=== PATIENT | male | born 1970 | race Caucasian/White ===

== ENCOUNTER 2016-11-13 17:55 | Emergency (ER) | payer OTHER ==
[2016-11-13] MEDS ORDERED: ONDANSETRON 4 MG/2 ML VIAL IVP STA (18:31)
[2016-11-13] MEDS ORDERED: SODIUM CHLORIDE 0.9% 1,000 ML IV STA (18:31)
[2016-11-13] MEDS ORDERED: HYDROmorphone 1 MG/ML 1 ML SYRINGE IVP STA (18:48)
--- NOTE | 2016-11-13 18:51 | ED ---
Nausea/Vomiting/Diarrhea HPI - General Chief complaint: Nausea/Vomiting/Diarrhea Stated complaint: flu symptoms Time Seen by Provider: 11/13/16 18:31 Source: patient, RN notes reviewed Mode of arrival: wheelchair Limitations: no limitations - History of Present Illness Initial comments: 46-year-old male presents emergency Department chief complaint nausea vomiting diarrhea. Patient states symptoms started 3 days ago he states he's only been able keep down small amount of burn is. Patient states he has chronic pain from MS and which he normally takes [place] and states he's been unable take his pain medication. Patient states he has bilateral flank pain. Patient denies any dysuria. Patient states he has some decreased urine output. Patient denies fever, chills. Denies chest pain, shortness breath, headache, dizziness. Patient states he just does not feel well. Patient states his concern is has not been able to keep much down last 3 days. - Related Data Home Medications Medication Instructions Recorded Confirmed HYDROcodone/APAP 10-325MG [[place] 1 tab PO BID PRN 02/19/16 11/13/16 10-325] Aspirin EC [Ecotrin Low Dose] 81 mg PO DAILY 11/13/16 11/13/16 Previous Rx's Medication Instructions Recorded Ondansetron Odt [Zofran Odt] 4 mg PO Q8HR PRN #10 tab 11/13/16 Allergies Allergy/AdvReac Type Severity Reaction Status Date / Time No Known Allergies Allergy Verified 11/13/16 18:39 Review of Systems ROS Statement: Those systems with pertinent positive or pertinent negative responses have been documented in the HPI. ROS Other: All systems not noted in ROS Statement are negative. Past Medical History Past Medical History: Chest Pain / Angina, GERD/Reflux, Neurologic Disorder Additional Past Medical History / Comment(s): ms History of Any Multi-Drug Resistant Organisms: None Reported Past Surgical History: Cholecystectomy, Hernia Repair, Orthopedic Surgery Additional Past Surgical History / Comment(s): had egd, colonoscopy, pain clinic prodedure bi shoulders Past Anesthesia/Blood Transfusion Reactions: No Reported Reaction Past Psychological History: Anxiety Smoking Status: Former smoker Past Alcohol Use History: Occasional Past Drug Use History: Marijuana General Exam Limitations: no limitations General appearance: alert, in no apparent distress Head exam: Present: atraumatic, normocephalic, normal inspection Respiratory exam: Present: normal lung sounds bilaterally. Absent: respiratory distress, wheezes, rales, rhonchi, stridor Cardiovascular Exam: Present: regular rate, normal rhythm, normal heart sounds. Absent: systolic murmur, diastolic murmur, rubs, gallop, clicks GI/Abdominal exam: Present: soft, normal bowel sounds. Absent: distended, tenderness, guarding, rebound, rigid Back exam: Present: full ROM, tenderness, CVA tenderness (R), CVA tenderness (L) . Absent: paraspinal tenderness, vertebral tenderness Neurological exam: Present: alert, oriented X3, CN II-XII intact, reflexes normal. Absent: motor sensory deficit Skin exam: Present: warm, dry, intact, normal color. Absent: rash Course Vital Signs 11/13/16 11/13/16 18:20 19:56 Temperature 97.9 F 98.0 F Pulse Rate 81 70 Respiratory 18 20 Rate Blood Pressure 112/80 123/65 O2 Sat by Pulse 96 100 Oximetry Medical Decision Making - Medical Decision Making 46-year-old male present emergency department for nausea vomiting diarrhea. Patient states does feel improved at this time. Patient has gastritis. Patient be discharged and denies medication. Return parameters were discussed. - Lab Data Result diagrams: 11/13/16 18:52 11/13/16 18:52 Lab Results 11/13/16 11/13/16 11/13/16 Range/Units 18:30 18:52 18:52 WBC 10.0 (3.8-10.6) k/uL RBC 5.71 (4.30-5.90) m/uL Hgb 17.5 (13.0-17.5) gm/dL Hct 51.2 (39.0-53.0) % MCV 89.5 (80.0-100.0) fL MCH 30.6 (25.0-35.0) pg MCHC 34.2 (31.0-37.0) g/dL RDW 13.1 (11.5-15.5) % Plt Count 294 (150-450) k/uL Neutrophils % 63 % Lymphocytes % 26 % Monocytes % 6 % Eosinophils % 2 % Basophils % 1 % Neutrophils # 6.3 (1.3-7.7) k/uL Lymphocytes # 2.6 (1.0-4.8) k/uL Monocytes # 0.6 (0-1.0) k/uL Eosinophils # 0.2 (0-0.7) k/uL Basophils # 0.1 (0-0.2) k/uL Sodium 144 (137-145) mmol/L Potassium 4.7 (3.5-5.1) mmol/L Chloride 105 (98-107) mmol/L Carbon Dioxide 23 (22-30) mmol/L Anion Gap 16 mmol/L BUN 13 (9-20) mg/dL Creatinine 1.04 (0.66-1.25) mg/dL Est GFR (MDRD) Af Amer >60 (>60 ml/min/1.73 sqM) Est GFR (MDRD) Non-Af >60 (>60 ml/min/1.73 sqM) Glucose 99 (74-99) mg/dL Calcium 10.2 (8.4-10.2) mg/dL Total Bilirubin 2.0 H (0.2-1.3) mg/dL AST 35 (17-59) U/L ALT 53 (21-72) U/L Alkaline Phosphatase 79 (38-126) U/L Troponin I (0.000-0.034) ng/mL Total Protein 8.7 H (6.3-8.2) g/dL Albumin 5.1 H (3.5-5.0) g/dL Amylase 62 (30-110) U/L Lipase 67 (23-300) U/L Urine Color Yellow Urine Appearance Clear (Clear) Urine pH 6.0 (5.0-8.0) Ur Specific [place] 1.026 (1.001-1.035) Urine Protein 1+ H (Negative) Urine Glucose (UA) Negative (Negative) Urine Ketones 1+ H (Negative) Urine Blood Negative (Negative) Urine Nitrite Negative (Negative) Urine Bilirubin Negative (Negative) Urine Urobilinogen <2.0 (<2.0) mg/dL Ur Leukocyte Esterase Negative (Negative) Urine RBC <1 (0-5) /hpf Urine WBC <1 (0-5) /hpf Urine Mucus Many H (None) /hpf 11/13/16 Range/Units 18:52 WBC (3.8-10.6) k/uL RBC (4.30-5.90) m/uL Hgb (13.0-17.5) gm/dL Hct (39.0-53.0) % MCV (80.0-100.0) fL MCH (25.0-35.0) pg MCHC (31.0-37.0) g/dL RDW (11.5-15.5) % Plt Count (150-450) k/uL Neutrophils % % Lymphocytes % % Monocytes % % Eosinophils % % Basophils % % Neutrophils # (1.3-7.7) k/uL Lymphocytes # (1.0-4.8) k/uL Monocytes # (0-1.0) k/uL Eosinophils # (0-0.7) k/uL Basophils # (0-0.2) k/uL Sodium (137-145) mmol/L Potassium (3.5-5.1) mmol/L Chloride (98-107) mmol/L Carbon Dioxide (22-30) mmol/L Anion Gap mmol/L BUN (9-20) mg/dL Creatinine (0.66-1.25) mg/dL Est GFR (MDRD) Af Amer (>60 ml/min/1.73 sqM) Est GFR (MDRD) Non-Af (>60 ml/min/1.73 sqM) Glucose (74-99) mg/dL Calcium (8.4-10.2) mg/dL Total Bilirubin (0.2-1.3) mg/dL AST (17-59) U/L ALT (21-72) U/L Alkaline Phosphatase (38-126) U/L Troponin I <0.012 (0.000-0.034) ng/mL Total Protein (6.3-8.2) g/dL Albumin (3.5-5.0) g/dL Amylase (30-110) U/L Lipase (23-300) U/L Urine Color Urine Appearance (Clear) Urine pH (5.0-8.0) Ur Specific [place] (1.001-1.035) Urine Protein (Negative) Urine Glucose (UA) (Negative) Urine Ketones (Negative) Urine Blood (Negative) Urine Nitrite (Negative) Urine Bilirubin (Negative) Urine Urobilinogen (<2.0) mg/dL Ur Leukocyte Esterase (Negative) Urine RBC (0-5) /hpf Urine WBC (0-5) /hpf Urine Mucus (None) /hpf Disposition Clinical Impression: Gastroenteritis Disposition: HOME SELF-CARE Condition: Stable Instructions: Acute Nausea and Vomiting (ED) Additional Instructions: Please return to the Emergency Department if symptoms worsen or any other concerns. Prescriptions: Ondansetron Odt [Zofran Odt] 4 mg PO Q8HR PRN #10 tab PRN Reason: Nausea Time of Disposition: 20:15
[2016-11-13 19:10] LABS: Basophils # (A) 0.1 k/uL (0-0.2); Basophils % (A) 1 %; CH 31.4; CHCM 35.3; Eosinophils # (A) 0.2 k/uL (0-0.7); Eosinophils % (A) 2 %; HCT 51.2 % (39.0-53.0); HDW 2.35; HGB 17.5 gm/dL (13.0-17.5); Luc # (Auto) 0.24; Luc % (Auto) 2; Lymphocytes # (A) 2.6 k/uL (1.0-4.8); Lymphocytes % (A) 26 %; MCH 30.6 pg (25.0-35.0); MCHC 34.2 g/dL (31.0-37.0); MCV 89.5 fL (80.0-100.0); Mean Platelet Volume 7.2; Monocytes # (A) 0.6 k/uL (0-1.0); Monocytes % (A) 6 %; Neutrophils # (A) 6.3 k/uL (1.3-7.7); Neutrophils % (A) 63 %; RBC 5.71 m/uL (4.30-5.90); RDW 13.1 % (11.5-15.5); WBC (Perox) 9.65
[2016-11-13 19:22] LABS: ALT 53 U/L (21-72); AST 35 U/L (17-59); Alkaline Phosphatase 79 U/L (38-126); Amylase 62 U/L (30-110); Anion Gap 16 mmol/L; Blood Urea Nitrogen 13 mg/dL (9-20); Calcium 10.2 mg/dL (8.4-10.2); Carbon Dioxide 23 mmol/L (22-30); Chloride 105 mmol/L (98-107); Glucose 99 mg/dL (74-99); Non-African American GFR(MDRD) >60 (>60 ml/min/1.73 sqM); Potassium 4.7 mmol/L (3.5-5.1); Sodium 144 mmol/L (137-145); Total Protein 8.7 g/dL (6.3-8.2)
[2016-11-13 19:50] LABS: Appearance,Urine Clear (Clear); Bilirubin,Urine Negative (Negative); Glucose,Urine (UA) Negative (Negative); Ketones,Urine 1+ (Negative); Leukocyte Esterase,Urine Negative (Negative); Mucus,Urine Many /hpf; Nitrite,Urine Negative (Negative); Particle Count 7112; Protein,Urine 1+ (Negative); RBC,Urine <1 /hpf (0-5); Specific Gravity,Urine 1.026 (1.001-1.035); UA Billing (MACRO vs. MICRO) MICRO; Urobilinogen,Urine <2.0 mg/dL (<2.0); WBC,Urine <1 /hpf (0-5)
[2016-11-13 19:59] VITALS: RESP 20; TEMP 98
[2016-11-13 20:35] VITALS: BP 104/73; PULSE 69
== END 2016-11-13 20:35 | disposition home or self-care (01) ==
LOC: EC 17:55
DX: K52.9 Noninfective gastroenteritis and colitis, unspecified (principal); K29.70 Gastritis, unspecified, without bleeding; R11.2 Nausea with vomiting, unspecified; K21.9 Gastro-esophageal reflux disease without esophagitis; Z87.891 Personal history of nicotine dependence; Z79.82 Long term (current) use of aspirin; Z87.19 Personal history of other diseases of the digestive system; Z90.49 Acquired absence of other specified parts of digestive tract
CPT/HCPCS: 36415; 93005; 80053; 82150; 83690; 84484; 85025; 81001; 99284; 96374; 96375; 96361; J2405; J1170

== ENCOUNTER → 2016-12-11 | Outpatient (CLI) | payer OTHER ==
--- NOTE | 2016-12-11 08:48 | US ---
EXAMINATION TYPE: US kidneys/renal and bladder DATE OF EXAM: 12/11/2016 8:26 AM COMPARISON: 06/28/2012 CLINICAL HISTORY: R10.84 RUQ PAIN. Left flank pain radiating to the back EXAM MEASUREMENTS: Right Kidney: 11.1 x 4.7 x 5.1 cm Left Kidney: 11.0 x 4.6 x 5.2 cm Right Kidney: Medial anechoic lesions seen at hilum = 1.9 x 1.8 x 1.6 cm Left Kidney: wnl Bladder: distended, wnl Bilateral Jets seen There is no evidence for hydronephrosis at this point in time. No nephrolithiasis is seen. Nonspecif ic hypoechoic lesion near the right renal hilum. The urinary bladder is anechoic. Bilateral ureteral jets are seen. IMPRESSION: Nonspecific hypoechoic lesion near the right renal hilum. Consider CT correlation.
== END ==
LOC: RADUSWWP 08:04
PROVIDERS: ATTEND Family Medicine
DX: R10.9 Unspecified abdominal pain (principal)
CPT/HCPCS: 76770

== ENCOUNTER → 2016-12-24 | Outpatient (CLI) | payer OTHER ==
--- NOTE | 2016-12-24 08:24 | CT ---
EXAMINATION TYPE: CT abdomen w con DATE OF EXAM: 12/24/2016 8:17 AM COMPARISON: 01/22/2013 and ultrasound of 12/11/2016 HISTORY: Abnormal renal ultrasound CT DLP: [address] of the abdomen performed. Contrast:Omni 300/100ml injected. FINDINGS: LUNG BASES-: No visible nodule. No infiltrate. LIVER/GB: Cholecystectomy changes. Fatty hepatic infiltration noted. No space occupying hepatic le kathleen. Biliary tree is of normal caliber. PANCREAS: No inflammation. No distinct mass. SPLEEN: No splenic enlargement. No lesion seen. ADRENALS: No nodule. No thickening. KIDNEYS/BLADDER: No hydronephrosis. No nephrolithiasis. No disctinct renal mass. Findings on ultra sound were likely related to overlying bowel content and artifact. Urinary bladder grossly unremarkab le. BOWEL: Normal appendix. Normal bowel caliber. No inflammation. LYMPH NODES: No greater than 1cm abdominal or pelvic lymph nodes are appreciated. AORTA: No significant abnormality. OSSEOUS STRUCTURES: No significant abnormality is seen. OTHER: No significant additional abnormality is seen. IMPRESSION: 1. No abnormality of the kidneys identified. 2. Fatty liver.
== END | disposition home or self-care (01) ==
LOC: RADCTMAIN 06:31
PROVIDERS: ATTEND Family Medicine
DX: K76.0 Fatty (change of) liver, not elsewhere classified (principal); Z88.6 Allergy status to analgesic agent; Z88.8 Allergy status to other drugs, medicaments and biological substances
CPT/HCPCS: 74160; Q9967

== ENCOUNTER → 2018-05-07 | Outpatient (CLI) | payer MEDICARE ==
--- NOTE | 2018-05-07 19:43 | CT ---
EXAMINATION TYPE: CT sinus wo con DATE OF EXAM: 05/07/2018 COMPARISON: Prior sinus CT September 25, 2015 HISTORY: Headaches x1 month. Chronic sinusitis per order. CT DLP: 658 mGycm. Automated Exposure Control for Dose Reduction was Utilized. TECHNIQUE: CT scan of the sinuses is performed without contrast, axial images are obtained, coronal r eformatted images are also reviewed. FINDINGS: There is redemonstration of stable 8 mm mucous retention cyst or polyp in inferior left max illary sinus. There is mild to moderate lobulated mucosal thickening with small mucous retention cyst s or polyps in the inferior right maxillary sinus redemonstrated. There is mild to moderate mucosal t hickening in the ethmoid sinuses bilaterally most prominent anteriorly slightly improved from prior. There is moderate mucosal thickening in the left frontal sinus redemonstrated slightly improved from prior. Mild mucosal thickening in inferior right frontal sinus is now present. Minimal mucosal thicke chago in the anterior right sphenoid sinus is redemonstrated. No suspicious opacification or air-fluid levels are seen. The ostiomeatal complex is patent on the left on the coronal images similar to prio r. Ostiomeatal complex remains occluded due to antral mucosal thickening on the right. Nasal septum r emains deviated to right of midline. Visualized portion of mastoid air cells show no abnormal opacification. The globes are intact bilate rally. IMPRESSION: Chronic paranasal sinus disease redemonstrated slightly improved from prior. No acute or active sinusitis.
== END | disposition home or self-care (01) ==
LOC: RADCTMAIN 19:00
PROVIDERS: ATTEND Otolaryngology
DX: J32.9 Chronic sinusitis, unspecified (principal)
CPT/HCPCS: 70486

== ENCOUNTER 2018-05-31 15:09 | Emergency (ER) | payer MEDICARE ==
[2018-05-31 15:44] VITALS: BP 114/78; TEMP 97.9
[2018-05-31] MEDS ORDERED: methylPREDNISolone SOD SUCCI 125 MG/2 ML VIAL IV STA (15:59)
--- NOTE | 2018-05-31 16:05 | ED ---
General Adult HPI - General Chief complaint: Shortness of Breath Stated complaint: QUINN Time Seen by Provider: 05/31/18 15:48 Source: patient, RN notes reviewed Mode of arrival: ambulatory Limitations: no limitations - History of Present Illness Initial comments: Patient is a pleasant 47-year-old male presenting to the emergency department with difficulty in breathing. Patient states symptoms have progressed over a couple of days. Patient states it feels slightly like his throat. Patient states it is irritated but only mildly uncomfortable. Patient does have mild cough. Patient has good sinus problems and congestion for months. Patient has been on antibiotics twice now, last time was just a week or so ago. Patient is in the process of scheduling surgery with his ENT doctor. Patient denies any wheezing. No fevers. Patient has been using Flonase without much improvement of symptoms. - Related Data Home Medications Medication Instructions Recorded Confirmed Fluticasone Nasal [place] [Flonase 1 spr EA NOSTRIL BID 05/31/18 05/31/18 Nasal [place]] Ranitidine HCl [Zantac] 75 mg PO BID 05/31/18 05/31/18 Previous Rx's Medication Instructions Recorded predniSONE 20 mg PO BID #10 tab 05/31/18 Allergies Allergy/AdvReac Type Severity Reaction Status Date / Time No Known Allergies Allergy Verified 05/31/18 16:02 Review of Systems ROS Statement: Those systems with pertinent positive or pertinent negative responses have been documented in the HPI. ROS Other: All systems not noted in ROS Statement are negative. Constitutional: Denies: fever Eyes: Denies: eye pain ENT: Reports: congestion Respiratory: Reports: cough, dyspnea Cardiovascular: Denies: chest pain Endocrine: Denies: fatigue Gastrointestinal: Denies: abdominal pain Genitourinary: Denies: dysuria Musculoskeletal: Denies: back pain Skin: Denies: rash Neurological: Reports: headache (Patient does relate this to his chronic sinus problems). Denies: weakness Past Medical History Past Medical History: Chest Pain / Angina, GERD/Reflux, Neurologic Disorder Additional Past Medical History / Comment(s): ms History of Any Multi-Drug Resistant Organisms: None Reported Past Surgical History: Cholecystectomy, Hernia Repair, Orthopedic Surgery Additional Past Surgical History / Comment(s): had egd, colonoscopy, pain clinic prodedure bi shoulders Past Anesthesia/Blood Transfusion Reactions: No Reported Reaction Past Psychological History: Anxiety Smoking Status: Former smoker Past Alcohol Use History: Rare Past Drug Use History: Marijuana General Exam Limitations: no limitations General appearance: alert, in no apparent distress Head exam: Present: atraumatic Eye exam: Present: normal appearance, PERRL ENT exam: Present: other (Tenderness over the frontal, ethmoid,Sinuses. There is prominence of the uvula.) Expanded Mouth exam: Present: tongue normal. Absent: trismus, muffled voice, tongue elevation Throat exam: negative: tonsillar erythema, tonsillomegaly, tonsillar exudate Neck exam: Present: normal inspection Respiratory exam: Present: normal lung sounds bilaterally. Absent: chest wall tenderness Cardiovascular Exam: Present: regular rate, normal rhythm GI/Abdominal exam: Present: soft. Absent: tenderness Extremities exam: Present: normal inspection. Absent: pedal edema, calf tenderness Neurological exam: Present: alert Psychiatric exam: Present: normal affect, normal mood Skin exam: Present: normal color. Absent: cyanosis Course Vital Signs 05/31/18 05/31/18 15:42 16:50 Temperature 97.9 F Pulse Rate 89 Respiratory 22 16 Rate Blood Pressure 114/78 O2 Sat by Pulse 100 Oximetry - Reevaluation(s) Reevaluation #1: 05/31/18 17:24 Patient reevaluated and states he feels significantly improved following steroid. Patient updated on results and need for continued follow-up with ENT. EKG Findings - EKG Comments: EKG Findings:: Normal sinus rhythm 67. MO 150. QRS 90. QT 398. QTC 420. Normal axis. Normal QRS. No acute ST change. Medical Decision Making - Lab Data Result diagrams: 05/31/18 16:14 05/31/18 16:14 Lab Results 05/31/18 05/31/18 05/31/18 Range/Units 16:14 16:14 16:14 WBC 9.3 (3.8-10.6) k/uL RBC 5.52 (4.30-5.90) m/uL Hgb 16.2 (13.0-17.5) gm/dL Hct 48.0 (39.0-53.0) % MCV 86.8 (80.0-100.0) fL MCH 29.3 (25.0-35.0) pg MCHC 33.8 (31.0-37.0) g/dL RDW 13.1 (11.5-15.5) % Plt Count 270 (150-450) k/uL Neutrophils % 55 % Lymphocytes % 32 % Monocytes % 7 % Eosinophils % 4 % Basophils % 1 % Neutrophils # 5.1 (1.3-7.7) k/uL Lymphocytes # 2.9 (1.0-4.8) k/uL Monocytes # 0.6 (0-1.0) k/uL Eosinophils # 0.3 (0-0.7) k/uL Basophils # 0.1 (0-0.2) k/uL PT 9.8 (9.0-12.0) sec INR 1.0 (<1.2) APTT 22.4 (22.0-30.0) sec D-Dimer 0.26 (<0.60) mg/L FEU Sodium 142 (137-145) mmol/L Potassium 4.0 (3.5-5.1) mmol/L Chloride 108 H (98-107) mmol/L Carbon Dioxide 20 L (22-30) mmol/L Anion Gap 14 mmol/L BUN 13 (9-20) mg/dL Creatinine 0.85 (0.66-1.25) mg/dL Est GFR (CKD-EPI)AfAm >90 (>60 ml/min/1.73 sqM) Est GFR (CKD-EPI)NonAf >90 (>60 ml/min/1.73 sqM) Glucose 93 (74-99) mg/dL Calcium 10.0 (8.4-10.2) mg/dL Total Bilirubin 1.0 (0.2-1.3) mg/dL AST 30 (17-59) U/L ALT 29 (21-72) U/L Alkaline Phosphatase 83 (38-126) U/L NT-Pro-B Natriuret Pep pg/mL Total Protein 8.3 H (6.3-8.2) g/dL Albumin 5.0 (3.5-5.0) g/dL 05/31/18 Range/Units 16:14 WBC (3.8-10.6) k/uL RBC (4.30-5.90) m/uL Hgb (13.0-17.5) gm/dL Hct (39.0-53.0) % MCV (80.0-100.0) fL MCH (25.0-35.0) pg MCHC (31.0-37.0) g/dL RDW (11.5-15.5) % Plt Count (150-450) k/uL Neutrophils % % Lymphocytes % % Monocytes % % Eosinophils % % Basophils % % Neutrophils # (1.3-7.7) k/uL Lymphocytes # (1.0-4.8) k/uL Monocytes # (0-1.0) k/uL Eosinophils # (0-0.7) k/uL Basophils # (0-0.2) k/uL PT (9.0-12.0) sec INR (<1.2) APTT (22.0-30.0) sec D-Dimer (<0.60) mg/L FEU Sodium (137-145) mmol/L Potassium (3.5-5.1) mmol/L Chloride (98-107) mmol/L Carbon Dioxide (22-30) mmol/L Anion Gap mmol/L BUN (9-20) mg/dL Creatinine (0.66-1.25) mg/dL Est GFR (CKD-EPI)AfAm (>60 ml/min/1.73 sqM) Est GFR (CKD-EPI)NonAf (>60 ml/min/1.73 sqM) Glucose (74-99) mg/dL Calcium (8.4-10.2) mg/dL Total Bilirubin (0.2-1.3) mg/dL AST (17-59) U/L ALT (21-72) U/L Alkaline Phosphatase (38-126) U/L NT-Pro-B Natriuret Pep 38 pg/mL Total Protein (6.3-8.2) g/dL Albumin (3.5-5.0) g/dL - Radiology Data Radiology results: image reviewed (Chest x-ray and soft tissue neck reveal no acute abnormality.) Disposition Clinical Impression: Uvulitis Disposition: HOME SELF-CARE Condition: Stable Instructions: Uvulitis (ED) Additional Instructions: Please follow-up with primary care physician and ENT in the next couple days for recheck. Return for difficulty breathing, throat swelling, fevers, throat pain, worsening symptoms or other concerns. Prescriptions: predniSONE 20 mg PO BID #10 tab Is patient prescribed a controlled substance at d/c from ED?: No Referrals: Will Mendoza MD [Primary Care Provider] - 1-2 days Prabhjot Garcia MD [Family Provider] - 1-2 days Time of Disposition: 17:25
[2018-05-31 16:23] LABS: Basophils # (A) 0.1 k/uL (0-0.2); Basophils % (A) 1 %; Eosinophils # (A) 0.3 k/uL (0-0.7); Eosinophils % (A) 4 %; HGB 16.2 gm/dL (13.0-17.5); Lymphocytes # (A) 2.9 k/uL (1.0-4.8); Lymphocytes % (A) 32 %; MCH 29.3 pg (25.0-35.0); MCHC 33.8 g/dL (31.0-37.0); MCV 86.8 fL (80.0-100.0); Mean Platelet Volume 6.8; Monocytes # (A) 0.6 k/uL (0-1.0); Monocytes % (A) 7 %; Neutrophils # (A) 5.1 k/uL (1.3-7.7); Neutrophils % (A) 55 %; Platelet Count 270 k/uL (150-450); RBC 5.52 m/uL (4.30-5.90); RDW 13.1 % (11.5-15.5); WBC 9.3 k/uL (3.8-10.6)
[2018-05-31 16:34] LABS: ALT 29 U/L (21-72); AST 30 U/L (17-59); Alkaline Phosphatase 83 U/L (38-126); Anion Gap 14 mmol/L; Blood Urea Nitrogen 13 mg/dL (9-20); Carbon Dioxide 20 mmol/L (22-30); Chloride 108 mmol/L (98-107); Glucose 93 mg/dL (74-99); Sodium 142 mmol/L (137-145); Total Protein 8.3 g/dL (6.3-8.2)
[2018-05-31 16:40] LABS: D-Dimer 0.26 mg/L FEU (<0.60); Prothrombin Time 9.8 sec (9.0-12.0)
[2018-05-31 16:41] LABS: Partial Thromboplastin Time 22.4 sec (22.0-30.0)
--- NOTE | 2018-05-31 16:50 | XR ---
EXAMINATION TYPE: XR chest 2V DATE OF EXAM: 05/31/2018 COMPARISON: Prior chest 01/19/2014 HISTORY: Difficulty breathing, shortness of breath TECHNIQUE: Frontal and lateral views of the chest are obtained. FINDINGS: There is no focal air space opacity, pleural effusion, or pneumothorax seen. The cardiac silhouette size is within normal limits. The osseous structures are intact. IMPRESSION: No acute cardiopulmonary process.
[2018-05-31 16:52] VITALS: RESP 16
--- NOTE | 2018-05-31 16:52 | XR ---
Soft tissue neck HISTORY: Dyspnea and shortness of breath 2 views of the neck, comparison prior exam 11/28/2013 There is multilevel spondylosis. Loss of disc height present at C3-4, there is multilevel spondylosis . Suspect carotid artery calcification. There is no radiopaque foreign body. Airway is patent. Epiglo ttis shows a normal appearance in profile. IMPRESSION: Mild degenerative disc disease. Additional findings above.
[2018-05-31 17:36] VITALS: PULSE 77
== END 2018-05-31 17:30 | disposition home or self-care (01) ==
LOC: EC 15:09
DX: K12.2 Cellulitis and abscess of mouth (principal); R06.02 Shortness of breath; R05 Cough; J34.89 Other specified disorders of nose and nasal sinuses; K21.9 Gastro-esophageal reflux disease without esophagitis; Z87.891 Personal history of nicotine dependence; Z79.899 Other long term (current) drug therapy
CPT/HCPCS: 36415; 93005; 85379; 83880; 80053; 85025; 85610; 85730; 70360; 71046; 99285; 96374; J2930

== ENCOUNTER 2018-06-07 13:40 | Inpatient (IN) | payer MEDICARE, OTHER ==
[2018-06-07] MEDS ORDERED: ONDANSETRON 4 MG/2 ML VIAL IVP STA (14:27)
[2018-06-07] MEDS ORDERED: PANTOPRAZOLE 40 MG/10 ML VIAL IVP STA (14:27)
--- NOTE | 2018-06-07 14:31 | ED ---
General Adult HPI - General Chief complaint: GI Bleed Stated complaint: Rectal bleeding Time Seen by Provider: 06/07/18 14:14 Source: patient, RN notes reviewed Mode of arrival: ambulatory Limitations: no limitations - History of Present Illness Initial comments: Patient is a pleasant 47-year-old male presenting to the emergency department with concerns for rectal bleeding. Onset was today. Patient has had 2 episodes. Patient urgently had to go to the bathroom and had large amount of blood mixed with stool. No history of similar symptoms previously. Patient has been on prednisone twice recently for uvulitis. Patient states this has improved however not resolved. Patient has seen primary care physician and ENT for this as well as emergency department. Patient complains of some mild nausea. Patient also has some mild diffuse abdominal discomfort. Patient has no concerns for hemorrhoids or history of hemorrhoids. - Related Data Home Medications Medication Instructions Recorded Confirmed Ranitidine HCl [Zantac] 150 mg PO BID 06/07/18 06/07/18 Allergies Allergy/AdvReac Type Severity Reaction Status Date / Time No Known Allergies Allergy Verified 06/07/18 14:27 Review of Systems ROS Statement: Those systems with pertinent positive or pertinent negative responses have been documented in the HPI. ROS Other: All systems not noted in ROS Statement are negative. Constitutional: Denies: fever Eyes: Denies: eye pain ENT: Denies: ear pain Respiratory: Denies: cough Cardiovascular: Denies: chest pain Endocrine: Reports: fatigue Gastrointestinal: Reports: abdominal pain, hematochezia Genitourinary: Denies: dysuria Musculoskeletal: Denies: back pain Neurological: Denies: weakness Past Medical History Past Medical History: Chest Pain / Angina, GERD/Reflux, Neurologic Disorder Additional Past Medical History / Comment(s): ms History of Any Multi-Drug Resistant Organisms: None Reported Past Surgical History: Cholecystectomy, Hernia Repair, Orthopedic Surgery Additional Past Surgical History / Comment(s): had egd, colonoscopy, pain clinic prodedure bi shoulders Past Anesthesia/Blood Transfusion Reactions: No Reported Reaction Past Psychological History: Anxiety Smoking Status: Former smoker Past Alcohol Use History: Rare Past Drug Use History: Marijuana General Exam Limitations: no limitations General appearance: alert, in no apparent distress Head exam: Present: atraumatic Eye exam: Present: normal appearance, PERRL ENT exam: Present: other (Uvula remains mildly prominent) Neck exam: Present: normal inspection Respiratory exam: Present: normal lung sounds bilaterally Cardiovascular Exam: Present: regular rate, normal rhythm GI/Abdominal exam: Present: soft, tenderness (Mild diffuse tenderness), normal bowel sounds. Absent: distended, guarding, rebound, rigid Rectal exam: Present: normal inspection. Absent: black stool, bloody stool, hemorrhoids Extremities exam: Present: normal inspection. Absent: pedal edema, calf tenderness Back exam: Present: normal inspection Neurological exam: Present: alert Psychiatric exam: Present: normal affect, normal mood Skin exam: Present: normal color Course Vital Signs 06/07/18 06/07/18 13:58 15:58 Temperature 98.5 F 97.7 F Pulse Rate 83 72 Respiratory 18 18 Rate Blood Pressure 123/78 135/73 O2 Sat by Pulse 97 98 Oximetry Medical Decision Making - Medical Decision Making Patient reevaluated and updated. Case was discussed with Dr. Mendoza, who will admit his patient. - Lab Data Result diagrams: 06/07/18 14:25 06/07/18 14:25 Lab Results 06/07/18 06/07/18 06/07/18 Range/Units 14:25 14:25 14:25 WBC 11.4 H (3.8-10.6) k/uL RBC 5.38 (4.30-5.90) m/uL Hgb 15.6 (13.0-17.5) gm/dL Hct 45.8 (39.0-53.0) % MCV 85.2 (80.0-100.0) fL MCH 29.0 (25.0-35.0) pg MCHC 34.0 (31.0-37.0) g/dL RDW 13.4 (11.5-15.5) % Plt Count 252 (150-450) k/uL Neutrophils % 59 % Lymphocytes % 29 % Monocytes % 7 % Eosinophils % 3 % Basophils % 1 % Neutrophils # 6.7 (1.3-7.7) k/uL Lymphocytes # 3.3 (1.0-4.8) k/uL Monocytes # 0.7 (0-1.0) k/uL Eosinophils # 0.4 (0-0.7) k/uL Basophils # 0.1 (0-0.2) k/uL PT (9.0-12.0) sec INR (<1.2) APTT (22.0-30.0) sec Sodium 140 (137-145) mmol/L Potassium 4.3 (3.5-5.1) mmol/L Chloride 106 (98-107) mmol/L Carbon Dioxide 22 (22-30) mmol/L Anion Gap 12 mmol/L BUN 14 (9-20) mg/dL Creatinine 0.83 (0.66-1.25) mg/dL Est GFR (CKD-EPI)AfAm >90 (>60 ml/min/1.73 sqM) Est GFR (CKD-EPI)NonAf >90 (>60 ml/min/1.73 sqM) Glucose 86 (74-99) mg/dL Calcium 9.2 (8.4-10.2) mg/dL Total Bilirubin 0.9 (0.2-1.3) mg/dL AST 20 (17-59) U/L ALT 28 (21-72) U/L Alkaline Phosphatase 65 (38-126) U/L Total Creatine Kinase 35 L (55-170) U/L CK-MB (CK-2) 0.5 (0.0-2.4) ng/mL CK-MB (CK-2) Rel Index 1.4 Troponin I <0.012 (0.000-0.034) ng/mL Total Protein 7.0 (6.3-8.2) g/dL Albumin 4.3 (3.5-5.0) g/dL Lipase 61 (23-300) U/L Stool Occult Blood (Negative) 06/07/18 06/07/18 Range/Units 14:25 14:25 WBC (3.8-10.6) k/uL RBC (4.30-5.90) m/uL Hgb (13.0-17.5) gm/dL Hct (39.0-53.0) % MCV (80.0-100.0) fL MCH (25.0-35.0) pg MCHC (31.0-37.0) g/dL RDW (11.5-15.5) % Plt Count (150-450) k/uL Neutrophils % % Lymphocytes % % Monocytes % % Eosinophils % % Basophils % % Neutrophils # (1.3-7.7) k/uL Lymphocytes # (1.0-4.8) k/uL Monocytes # (0-1.0) k/uL Eosinophils # (0-0.7) k/uL Basophils # (0-0.2) k/uL PT 9.9 (9.0-12.0) sec INR 1.0 (<1.2) APTT 21.5 L (22.0-30.0) sec Sodium (137-145) mmol/L Potassium (3.5-5.1) mmol/L Chloride (98-107) mmol/L Carbon Dioxide (22-30) mmol/L Anion Gap mmol/L BUN (9-20) mg/dL Creatinine (0.66-1.25) mg/dL Est GFR (CKD-EPI)AfAm (>60 ml/min/1.73 sqM) Est GFR (CKD-EPI)NonAf (>60 ml/min/1.73 sqM) Glucose (74-99) mg/dL Calcium (8.4-10.2) mg/dL Total Bilirubin (0.2-1.3) mg/dL AST (17-59) U/L ALT (21-72) U/L Alkaline Phosphatase (38-126) U/L Total Creatine Kinase (55-170) U/L CK-MB (CK-2) (0.0-2.4) ng/mL CK-MB (CK-2) Rel Index Troponin I (0.000-0.034) ng/mL Total Protein (6.3-8.2) g/dL Albumin (3.5-5.0) g/dL Lipase (23-300) U/L Stool Occult Blood Positive (Negative) - Radiology Data Radiology results: report reviewed (Computed tomography scan of the abdomen pelvis concerning for mild colitis of the sigmoid and possibly transverse colon) Disposition Clinical Impression: Lower gastrointestinal hemorrhage Disposition: ADMITTED IP TO THIS [facility] Referrals: Will Mendoza MD [Primary Care Provider] - 1-2 days Decision Time: 16:34
[2018-06-07] MEDS: SODIUM CHLORIDE 0.9% 1,000 ML IV STA ×2 (14:35→20:11)
[2018-06-07 14:41] LABS: Basophils # (A) 0.1 k/uL (0-0.2); Basophils % (A) 1 %; Eosinophils # (A) 0.4 k/uL (0-0.7); Eosinophils % (A) 3 %; HCT 45.8 % (39.0-53.0); HGB 15.6 gm/dL (13.0-17.5); Lymphocytes # (A) 3.3 k/uL (1.0-4.8); Lymphocytes % (A) 29 %; MCV 85.2 fL (80.0-100.0); Mean Platelet Volume 6.6; Monocytes # (A) 0.7 k/uL (0-1.0); Monocytes % (A) 7 %; Neutrophils # (A) 6.7 k/uL (1.3-7.7); Neutrophils % (A) 59 %; Platelet Count 252 k/uL (150-450); RBC 5.38 m/uL (4.30-5.90); RDW 13.4 % (11.5-15.5); WBC 11.4 k/uL (3.8-10.6)
[2018-06-07 14:47] LABS: ALT 28 U/L (21-72); AST 20 U/L (17-59); Albumin 4.3 g/dL (3.5-5.0); Alkaline Phosphatase 65 U/L (38-126); Anion Gap 12 mmol/L; Blood Urea Nitrogen 14 mg/dL (9-20); Calcium 9.2 mg/dL (8.4-10.2); Carbon Dioxide 22 mmol/L (22-30); Chloride 106 mmol/L (98-107); Glucose 86 mg/dL (74-99); Lipase 61 U/L (23-300); Potassium 4.3 mmol/L (3.5-5.1); Sodium 140 mmol/L (137-145); Total Bilirubin 0.9 mg/dL (0.2-1.3)
[2018-06-07 14:57] LABS: Prothrombin Time 9.9 sec (9.0-12.0)
[2018-06-07 15:02] LABS: Partial Thromboplastin Time 21.5 sec (22.0-30.0)
[2018-06-07 15:06] LABS: Creatine Kinase 35 U/L (55-170)
[2018-06-07 15:17] LABS: Creatine Kinase MB 0.5 ng/mL (0.0-2.4); Troponin I <0.012 ng/mL (0.000-0.034)
--- NOTE | 2018-06-07 15:38 | CT ---
EXAMINATION TYPE: CT abdomen pelvis w con DATE OF EXAM: 06/07/2018 COMPARISON: 12/24/2016 INDICATION: Generalized abdominal pain with rectal bleeding. DLP: 1331 mGycm, Automated exposure control for dose reduction was used. CONTRAST: 100 mL of Isovue M300. Study performed without Oral Contrast TECHNIQUE: Axial images were obtained from above the diaphragm to the pubic rami in the axial plane a t 5 mm thick sections. Reconstructed images are reviewed on the computer in the coronal plane. FINDINGS: Limited CT sections are obtained the lung bases. The lung bases are clear. CT ABDOMEN: Liver: Normal Spleen: Normal Pancreas: Normal Adrenal glands: The adrenal glands are normal. Gallbladder: Surgically absent Kidneys: No masses are evident. No hydronephrosis is present. No cysts are present. Delayed images were obtained through the kidneys, which remain unremarkable. Aorta: Vascular calcification is within the aorta. Inferior vena cava: Normal. CT PELVIS: Loops of bowel within the abdomen and pelvis are normal. There are loops of bowel which are incom pletely distended or lack oral contrast limiting their evaluation. There may be a few diverticular ch anges within the sigmoid colon. There is a suggestion of some mild wall thickening within the sigmoid colon. Correlate for colitis. Suspicious inflammatory changes suggest acute diverticulitis is not ev ident. Fecal debris is within the colon. Mild wall thickening of the proximal to mid transverse colon is not excluded. Appendix: Normal as visualized. Urinary bladder: Normal. Genitourinary structures: Prostate is slightly prominent. Osseous structures: No suspicious lytic or sclerotic lesions. IMPRESSIONS: 1. Findings suggestive for mild colitis within the sigmoid colon and possibly proximal transverse co jasvir. 2. No acute diverticulitis. Mild diverticulosis of the sigmoid colon may be present.
[2018-06-07] MEDS ORDERED: HYDROmorphone 1 MG/ML 1 ML SYRINGE IVP PRN (16:34)
[2018-06-07] MEDS ORDERED: NALOXONE 0.4 MG/ML 1 ML VIAL IV PRN (16:34)
[2018-06-07] MEDS: PANTOPRAZOLE 40 MG/10 ML VIAL IV SCH (16:45)
[2018-06-07] MEDS: SODIUM CHLORIDE 0.9% 1,000 ML IV SCH (20:12)
[2018-06-07] MEDS: HYDROmorphone 1 MG/ML 1 ML SYRINGE IVP PRN ×2 (20:17→23:14)
[2018-06-08] MEDS: HYDROmorphone 1 MG/ML 1 ML SYRINGE IVP PRN ×4 (05:13→18:31)
[2018-06-08] MEDS: ONDANSETRON 4 MG/2 ML VIAL IVP PRN ×2 (05:13→14:13)
[2018-06-08] MEDS: PANTOPRAZOLE 40 MG/10 ML VIAL IV SCH (09:08)
[2018-06-08] MEDS: SODIUM CHLORIDE 0.9% 1,000 ML IV SCH ×2 (09:09→21:03)
[2018-06-08 09:37] LABS: Basophils # (A) 0.1 k/uL (0-0.2); Basophils % (A) 1 %; Eosinophils # (A) 0.2 k/uL (0-0.7); Eosinophils % (A) 3 %; HCT 45.9 % (39.0-53.0); HGB 15.2 gm/dL (13.0-17.5); Lymphocytes # (A) 2.1 k/uL (1.0-4.8); Lymphocytes % (A) 23 %; MCH 29.2 pg (25.0-35.0); MCHC 33.1 g/dL (31.0-37.0); MCV 88.1 fL (80.0-100.0); Monocytes # (A) 0.6 k/uL (0-1.0); Monocytes % (A) 6 %; Neutrophils % (A) 67 %; Platelet Count 250 k/uL (150-450); RBC 5.21 m/uL (4.30-5.90); RDW 13.2 % (11.5-15.5)
--- NOTE | 2018-06-08 12:22 | P.HPIM ---
History of Present Illness 47-year-old male presented to family physician office with complaints of rectal bleeding. Patient stated he had abdominal pain and distention for well. Patient was sent to the emergency room for evaluation admitted patient has history of prednisone use for upper respiratory infection Review of Systems Constitutional: Reports weakness Gastrointestinal: Reports abdominal pain, Reports hematochezia Past Medical History Past Medical History: Chest Pain / Angina, CVA/TIA, GERD/Reflux, Neurologic Disorder Additional Past Medical History / Comment(s): superficial blood clot in right arm History of Any Multi-Drug Resistant Organisms: None Reported Past Surgical History: Cholecystectomy, Hernia Repair, Orthopedic Surgery Additional Past Surgical History / Comment(s): had egd, colonoscopy, pain clinic prodedure for bilat shoulders Past Anesthesia/Blood Transfusion Reactions: No Reported Reaction Past Psychological History: Anxiety Smoking Status: Former smoker Past Alcohol Use History: Rare Past Drug Use History: Marijuana Medications and Allergies Home Medications Medication Instructions Recorded Confirmed Type Ranitidine HCl [Zantac] 150 mg PO BID 06/07/18 06/07/18 History Allergies Allergy/AdvReac Type Severity Reaction Status Date / Time No Known Allergies Allergy Verified 06/07/18 14:27 Physical Exam Vitals: Vital Signs Temp Pulse Pulse Resp BP BP Pulse Ox 06/08/18 06:52 98.4 F 06/08/18 06:15 99.0 F 75 18 106/73 97 06/07/18 23:00 98.5 F 69 18 109/71 96 06/07/18 18:36 98.0 F 69 16 141/83 98 06/07/18 15:58 97.7 F 72 18 135/73 98 06/07/18 13:58 98.5 F 83 18 123/78 97 Intake and Output 06/07/18 06/08/18 06/08/18 22:59 06:59 14:59 Other: Voiding Method Toilet # Voids 1 1 # Bowel Movements 1 - Constitutional General appearance: mild distress - EENT Eyes: PERRLA Ears: bilateral: normal - Respiratory Respiratory: bilateral: CTA - Cardiovascular Rhythm: regular - Gastrointestinal General gastrointestinal: soft Localized gastrointestinal: tender: diffuse - Integumentary Integumentary: normal - Neurologic Neurologic: CNII-XII intact - Musculoskeletal Musculoskeletal: gait normal - Psychiatric Psychiatric: A&O x's 3, appropriate affect, intact judgment & insight Results CBC & Chem 7: 10/09/18 08:59 06/07/18 14:25 Labs: Abnormal Lab Results - Last 24 Hours (Table) 06/07/18 06/07/18 06/07/18 Range/Units 14:25 14:25 14:25 WBC 11.4 H (3.8-10.6) k/uL APTT 21.5 L (22.0-30.0) sec Total Creatine Kinase 35 L (55-170) U/L CT scan - abdomen: report reviewed Thrombosis Risk Factor Assmnt - Choose All That Apply Each Factor Represents 1 point: Age 41-60 years Thrombosis Risk Factor Assessment Total Risk Factor Score: 1 Thrombosis Risk Factor Assessment Level: Low Risk Assessment and Plan Plan: Assessment Lower gastrointestinal hemorrhage Colitis History of GERD CVA/TIA Plan consultation with Dr. Bell regarding colitis Plan for colonoscopy tomorrow
--- NOTE | 2018-06-08 12:37 | P.CONS ---
History of Present Illness - Reason for Consult Consult date: 06/08/18 Rectal bleeding Requesting physician: Will Mendoza - Chief Complaint Rectal bleeding abdominal pain - History of Present Illness 47-year-old male patient Dr. Will Mendoza recently treated in the outpatient setting for sinus infection with antibiotics and steroids presents with acute rectal bleeding abdominal discomfort. Patient has no history of GI bleed or peptic ulcer disease. Yesterday patient passed a few blood tinged bowel movements Denies fever chills hematemesis or melena. This morning he passed a nonbloody bowel movement described green in color. Admission hemoglobin 15.6 presently 15.2. White count 11.4 presently 9.0. INR 1.0. BUN 14. Creatinine 0.8. Lipase 61. LFTs within normal limits. FOBT positive. CT abdomen and pelvis findings suggestive mild colitis within the sigmoid colon and possible proximal transverse colon. Mild diverticular in the sigmoid may be present with no evidence of acute diverticulitis. Abdominal pain is mostly across the midabdomen midepigastric region. Review of Systems Constitutional: Denies fever, chills, sweats, weight gain, or loss. HEENT: Negative for migraines, blurred vision or loss, earaches, drainage, tinnitus, oral mucosal lesions, dysphagia, or odynophagia. Cardiac: Negative for chest pain, arrhythmias, or palpitation. Respiratory: Negative for shortness of breath, hemoptysis, cough, or sputum production. Gastrointestinal: See HPI for pertinent findings. Genitourinary: Negative for hematuria, urgency, frequency, polyuria, dysuria, or penile discharge. Musculoskeletal: Negative for muscle aches, swelling, arthritis, and arthralgias. Neurologic: Negative for stroke or TIA. Endocrine: Negative for thyroid problems. Skin: Negative for rash or itching. Psychiatric: Negative history for depression and anxiety Past Medical History Past Medical History: Chest Pain / Angina, CVA/TIA, GERD/Reflux, Neurologic Disorder Additional Past Medical History / Comment(s): superficial blood clot in right arm History of Any Multi-Drug Resistant Organisms: None Reported Past Surgical History: Cholecystectomy, Hernia Repair, Orthopedic Surgery Additional Past Surgical History / Comment(s): had egd, colonoscopy, pain clinic prodedure for bilat shoulders Past Anesthesia/Blood Transfusion Reactions: No Reported Reaction Past Psychological History: Anxiety Smoking Status: Former smoker Past Alcohol Use History: Rare Past Drug Use History: Marijuana Medications and Allergies Home Medications Medication Instructions Recorded Confirmed Type Ranitidine HCl [Zantac] 150 mg PO BID 06/07/18 06/07/18 History Allergies Allergy/AdvReac Type Severity Reaction Status Date / Time No Known Allergies Allergy Verified 06/07/18 14:27 Physical Exam Vitals: Vital Signs Temp Pulse Pulse Resp BP BP Pulse Ox 06/08/18 06:52 98.4 F 06/08/18 06:15 99.0 F 75 18 106/73 97 06/07/18 23:00 98.5 F 69 18 109/71 96 06/07/18 18:36 98.0 F 69 16 141/83 98 06/07/18 15:58 97.7 F 72 18 135/73 98 06/07/18 13:58 98.5 F 83 18 123/78 97 Intake and Output 06/07/18 06/08/18 06/08/18 22:59 06:59 14:59 Other: Voiding Method Toilet # Voids 1 1 # Bowel Movements 1 General appearance: The patient is alert, oriented, in no acute distress. HET: Head is normocephalic and atraumatic. Pupils are equal and reactive. Oropharynx is clear without lesions. Neck: Supple without lymphadenopathy. Trachea midline. Heart: S1 S2. Regular rate and rhythm. Lungs: No crackles or wheezes are heard. Abdomen: Soft, diffuse mild tenderness across the midabdomen midepigastrium, nondistended with bowel sounds. No peritoneal signs. No palpable organomegaly or masses. Extremities: Normal skin color and turgor. No cyanosis, rash, ulceration, clubbing, or edema. Radial and pedal pulses are 2/4 bilaterally. Neurological: No focal deficits. Strength and sensation are grossly intact. Results CBC & Chem 7: 06/08/18 08:59 06/07/18 14:25 Labs: Abnormal Lab Results - Last 24 Hours (Table) 06/07/18 06/07/18 06/07/18 Range/Units 14:25 14:25 14:25 WBC 11.4 H (3.8-10.6) k/uL APTT 21.5 L (22.0-30.0) sec Total Creatine Kinase 35 L (55-170) U/L CT scan - abdomen: report reviewed (Dr. Steele) Assessment and Plan (1) Acute abdominal pain Narrative/Plan: 47-year-old male presents with acute epigastric abdominal pain with rectal bleeding 1 day recently treated in the outpatient setting with antibiotics and steroids for suspected sinus infection. CT abdomen and pelvis reported findings suggestive of mild colitis within the sigmoid colon and possible proximal transverse colon without evidence of diverticulitis. Possible self limiting infectious colitis possible inflammatory colitis. Current Visit: Yes Status: Acute Code(s): R10.9 - UNSPECIFIED ABDOMINAL PAIN SNOMED Code(s): 704911739 (2) Rectal bleeding Current Visit: Yes Status: Acute Code(s): K62.5 - HEMORRHAGE OF ANUS AND RECTUM SNOMED Code(s): 68115336 Plan: 1. Clear liquids. 2. Stool studies including C. diff testing. 3. We'll proceed with EGD colonoscopy tomorrow. GI prophylaxis. CBC monitoring. The accountant tax has discussed the risks, benefits and alternative therapies for the above-mentioned procedure and for both sedation/analgesia as well as necessary blood product administration, if indicated, as they pertain to this patient. The patient has indicated understanding and acceptance of the risks and procedures discussed. Thank you for this kind referral and the opportunity to participate in the care of your patient. This consultation was discussed with Dr. Steele. The impression and plan of care have been directed as dictated.
[2018-06-08] MEDS ORDERED: BISACODYL 5 MG TABLET.DR PO STA (12:40)
[2018-06-08] MEDS ORDERED: PEG 3350-NA SULF,BICARB,CL/KCL 4,000 ML BOTTLE PO ONE (15:00)
[2018-06-09] MEDS: HYDROmorphone 1 MG/ML 1 ML SYRINGE IVP PRN ×5 (06:46→21:46)
[2018-06-09] MEDS: PANTOPRAZOLE 40 MG/10 ML VIAL IV SCH (08:30)
[2018-06-09] MEDS: ONDANSETRON 4 MG/2 ML VIAL IVP PRN ×2 (09:46→18:27)
[2018-06-09] MEDS ORDERED: IV FLUID CONTINUATION 1,000 ML IV ONE (11:57)
[2018-06-09] MEDS ORDERED: KETAMINE 10 MG/ML 20 ML VIAL ONE (12:00)
[2018-06-09] MEDS ORDERED: PROPOFOL 10 MG/ML 20 ML VIAL IV ONE (12:00)
[2018-06-09] MEDS ORDERED: LIDOCAINE 1% INJ 10MG/ML (20 ML MDV) ONE (12:00)
[2018-06-09] MEDS ORDERED: MIDAZOLAM 2 MG/2 ML VIAL ONE (12:00)
--- NOTE | 2018-06-09 12:15 | P.PN ---
Subjective Continues with left lower quadrant pain. Patient scheduled for EGD and colonoscopy Objective - Vital Signs Vital signs: Vital Signs Temp 98.3 F 06/09/18 08:00 Pulse 78 06/09/18 08:00 Resp 18 06/09/18 08:00 BP 136/69 06/09/18 08:00 Pulse Ox 97 06/09/18 06:10 Intake & Output 06/08/18 06/09/18 06/09/18 18:59 06:59 18:59 Intake Total 600 Balance 600 Intake: Intake, IV Titration 600 Amount Sodium Chloride 0.9% 1, 600 000 ml @ 75 mls/hr IV . [id number] MADELINE Rx#:[id number] Other: Voiding Method Toilet # Voids 4 2 # Bowel Movements 1 2 - Constitutional General appearance: Present: mild distress - EENT Eyes: Present: PERRLA Ears: bilateral: normal - Neck Neck: Present: normal ROM - Respiratory Respiratory: bilateral: CTA - Cardiovascular Rhythm: regular - Gastrointestinal General gastrointestinal: Present: soft Localized gastrointestinal: tender: LLQ - Integumentary Integumentary: Present: normal - Neurologic Neurologic: Present: CNII-XII intact - Musculoskeletal Musculoskeletal: Present: gait normal - Psychiatric Psychiatric: Present: A&O x's 3, appropriate affect, intact judgment & insight - Labs CBC & Chem 7: 06/08/18 08:59 06/07/18 14:25 Labs: Microbiology - Last 24 Hours (Table) 06/08/18 18:29 Stool Culture - Preliminary Stool Assessment and Plan Plan: Assessment Lower gastrointestinal hemorrhage Left lower quadrant abdominal pain Colitis GERD History of CVA/TIA Plan EGD and colonoscopy scheduled
--- NOTE | 2018-06-09 12:20 | P.PCN ---
Date of Procedure: 06/09/18 Procedure(s) Performed: Brief history: Patient is a pleasant 47-year-old white male scheduled for an elective upper endoscopy as well as colonoscopy as a part of evaluation of acute GI bleed. He had a few episodes of bright red blood per rectum 2 days ago. Hemoglobin remained stable at 15 g/dL. Procedure performed: Esophagogastroduodenoscopy Colonoscopy Preoperative diagnosis: Abdominal pain Acute GI bleed Anesthesia: [facility] [place] Procedure: After informed consent was obtained from the patient was brought into the endoscopy unit and IV sedation was administered by anesthesia under continuous monitoring. Initially upper endoscopy was done. The Olympus GF 160 video endoscope was inserted inserted into the mouth and esophagus intubated without any difficulty and was gradually advanced into the stomach and duodenum and carefully examined. The bulb and second part of the duodenum appeared normal. The scope was then withdrawn into the stomach adequately insufflated with air and upon careful examination the antrum and body, cardia and fundus appeared normal. The scope was then withdrawn into the esophagus. The GE junction was located at 40 cm to the incisors. It appeared regular with no erythema erosions or ulcerations. Rest of the esophagus appeared normal. Patient tolerated the procedure well. At this time the patient continued to remain sedation. Initial digital rectal examination was normal. Olympus CF 160 video colonoscope was then inserted into the rectum and gradually advanced to the cecum without any difficulty. Careful examination was performed as the scope was gradually being withdrawn. The prep was excellent. The cecum, ascending colon, transverse colon, descending colon, sigmoid colon and rectum appeared normal. Retroflexion was performed in the rectum and small internal hemorrhoids were noted. Patient tolerated the procedure well. Impression: 1. Upper endoscopy revealed mild antral gastritis but no evidence of esophagitis or peptic ulcer disease 2. Colonoscopy revealed small internal hemorrhoids. No evidence of colitis or colorectal neoplasia Recommendations: Findings of this examination were discussed with the patient. He was advised to be a high-fiber diet and fiber supplements a regular basis, and avoid straining and constipation
[2018-06-09] MEDS: LACTATED RINGERS 1,000 ML IV SCH ×2 (14:43→21:50)
[2018-06-09] MEDS: SODIUM CHLORIDE 0.9% 1,000 ML IV SCH ×2 (17:03→21:50)
[2018-06-10] MEDS: HYDROmorphone 1 MG/ML 1 ML SYRINGE IVP PRN ×2 (01:37→06:29)
[2018-06-10 07:39] VITALS: BP 118/74; PULSE 75; RESP 16; TEMP 98.8
[2018-06-10] MEDS: PANTOPRAZOLE 40 MG/10 ML VIAL IV SCH (07:50)
--- NOTE | 2018-06-10 09:50 | P.PN ---
Subjective Progress Note Date: 06/10/18 Principal diagnosis: Rectal bleeding Status post EGD colonoscopy evidence of internal hemorrhoids. Feels well. No bleeding. Objective - Vital Signs Vital signs: Vital Signs Temp 98.8 F 06/10/18 07:00 Pulse 75 06/10/18 07:00 Resp 16 06/10/18 07:00 BP 118/74 06/10/18 07:00 Pulse Ox 96 06/10/18 07:00 Intake & Output 06/09/18 06/10/18 06/10/18 18:59 06:59 18:59 Intake Total 750 450 Balance 750 450 Intake: IV 150 Intake, IV Titration 600 Amount Sodium Chloride 0.9% 1, 600 000 ml @ 75 mls/hr IV . [id number] MADELINE Rx#:[id number] Oral 450 Other: # Voids 3 1 - Exam General appearance: The patient is alert, oriented, in no acute distress. HET: Head is normocephalic and atraumatic. Pupils are equal and reactive. Oropharynx is clear without lesions. Neck: Supple without lymphadenopathy. Trachea midline. Heart: S1 S2. Regular rate and rhythm. Lungs: No crackles or wheezes are heard. Abdomen: Soft, nontender, nondistended with bowel sounds. No peritoneal signs. No palpable organomegaly or masses. Extremities: Normal skin color and turgor. No cyanosis, rash, ulceration, clubbing, or edema. Radial and pedal pulses are 2/4 bilaterally. Neurological: No focal deficits. Strength and sensation are grossly intact. - Labs CBC & Chem 7: 06/08/18 08:59 06/07/18 14:25 Assessment and Plan (1) Acute abdominal pain Narrative/Plan: 47-year-old male presents with acute epigastric abdominal pain with rectal bleeding 1 day recently treated in the outpatient setting with antibiotics and steroids for suspected sinus infection. CT abdomen and pelvis reported findings suggestive of mild colitis within the sigmoid colon and possible proximal transverse colon without evidence of diverticulitis. Status post EGD colonoscopy EGD mild antral gastritis no evidence of peptic ulcer disease colonoscopy evidence of internal hemorrhoids no evidence of colitis or colorectal neoplasia. Current Visit: Yes Status: Acute Code(s): R10.9 - UNSPECIFIED ABDOMINAL PAIN SNOMED Code(s): 143351965 (2) Rectal bleeding Current Visit: Yes Status: Acute Code(s): K62.5 - HEMORRHAGE OF ANUS AND RECTUM SNOMED Code(s): 93943937 Plan: 1. Discharge per medicine. High-fiber diet. Avoid constipation stool softeners as needed. Assessment and plan a care discussed with Dr. Steele
[2018-06-10] MEDS: SODIUM CHLORIDE 0.9% 1,000 ML IV SCH (11:08)
--- NOTE | 2018-06-10 12:05 | P.DS ---
Providers Date of admission: 06/10/18 08:22 Expected date of discharge: 06/10/18 Attending physician: Will Mendoza Primary care physician: Will Mendoza [facility] Course: I am presented to family physician with complaints of bleeding from the rectum and abdominal pain. Patient was admitted to the emergency room. Patient was seen by gastroenterology had an EGD and colonoscopy diagnosis was of gastritis and internal hemorrhoids. Patient states abdominal pain improving does have history of IBS Assessment Lower gastrointestinal hemorrhage with internal hemorrhoid Colitis with history of IBS Gastritis Plan High-fiber diet with stool softener Follow-up with family physician Dr. Will Mendoza. Follow-up with gastroenterology Dr. Steele/ Rell Plan - Discharge Summary Discharge Rx Participant: Yes New Discharge Prescriptions: New Docusate [Colace] 100 mg PO DAILY 30 Days #30 capsule Continue Ranitidine HCl [Zantac] 150 mg PO BID Discharge Medication List Ranitidine HCl [Zantac] 150 mg PO BID 06/07/18 [History] Docusate [Colace] 100 mg PO DAILY 30 Days #30 capsule 06/10/18 [Rx] Follow up Appointment(s)/Referral(s): Will Mendoza MD [Primary Care Provider] - 1-2 days
== END 2018-06-10 13:42 | disposition home or self-care (01) | DRG 394 ==
LOC: EC 13:40 → 5MS5E 16:34 → 4MS4W 17:54 → OBSVTOIN 06-10 08:22
PROVIDERS: ADMIT Family Medicine; ATTEND Family Medicine
PROC: 0DB78ZX Excision of Stomach, Pylorus, Via Natural or Artificial Opening Endoscopic, Diagnostic (ICD-10-PCS; principal; 2018-06-09 12:55)
PROC: 0DJD8ZZ Inspection of Lower Intestinal Tract, Via Natural or Artificial Opening Endoscopic (ICD-10-PCS; 2018-06-09 12:55)
DX: K64.8 Other hemorrhoids (principal); K12.2 Cellulitis and abscess of mouth; K58.9 Irritable bowel syndrome, unspecified; F41.9 Anxiety disorder, unspecified; Z86.73 Personal history of transient ischemic attack (TIA), and cerebral infarction without residual deficits; Z87.891 Personal history of nicotine dependence; K21.9 Gastro-esophageal reflux disease without esophagitis; K29.60 Other gastritis without bleeding; Z79.810 Long term (current) use of selective estrogen receptor modulators (SERMs); K57.30 Diverticulosis of large intestine without perforation or abscess without bleeding
CPT/HCPCS: 36415; 43239; 45378; 74177; 80053; 82272; 82550; 82553; 83630; 83690; 84484; 85025; 85610; 85730; 87045; 87046; 87324; 88305; 96374; 96375; 99284

== ENCOUNTER 2018-06-23 09:10 | Day surgery (SDC) | payer MEDICARE ==
[2018-06-16 14:47] VITALS: BMI 27.1
[~2018-06-23 09:10] MED LIST: DEXAMETHASONE SOD PHOSPHATE 10 MG/ML 1 ML VIAL IV ONE; FAMOTIDINE 20 MG/2 ML VIAL IV ONE; HYDROmorphone 0.5 MG/0.5 ML SYRINGE IVP PRN; LACTATED RINGERS 1,000 ML IV SCH; LIDOCAINE 1% 20 ML VIAL (10MG/ML) FOR IV START INTRADERMA PRN; MIDAZOLAM 2 MG/2 ML VIAL IV PRN; ONDANSETRON 4 MG/2 ML VIAL IVP ONE; Pre Op ABX Message 1 EACH MISC MISCELLANE ONE; SCOPOLAMINE 1.5MG/72HR PATCH TRANSDERM ONE; ceFAZolin 1,000 MG in DEXTROSE/WATER 1 50ML.BAG IV ONE
[2018-06-23] MEDS: OXYMETAZOLINE 0.05% NASL SPRAY 1 SPRAY BOTTLE NASAL ONE ×5 (10:41→11:02)
[2018-06-23] MEDS ORDERED: MIDAZOLAM 2 MG/2 ML VIAL ONE (11:36)
[2018-06-23] MEDS ORDERED: HYDROmorphone (PF) 1 MG/ML ONE (11:36)
[2018-06-23] MEDS ORDERED: MORPHINE SULFATE 10 MG/ML SYRINGE ONE (11:36)
[2018-06-23] MEDS ORDERED: LIDOCAINE 1% INJ 10MG/ML (20 ML MDV) ONE (11:36)
[2018-06-23] MEDS ORDERED: GLYCOPYRROLATE 0.2 MG/ML 2 ML VIAL ONE (11:36)
[2018-06-23] MEDS ORDERED: fentaNYL (PF) 50 MCG/ML 2 ML AMP ONE (11:36)
[2018-06-23] MEDS ORDERED: PROPOFOL 10 MG/ML 20 ML VIAL IV ONE (11:36)
[2018-06-23] MEDS ORDERED: NEOSTIGMINE 1 MG/ML 10 ML VIAL ONE (11:36)
[2018-06-23] MEDS ORDERED: ROCURONIUM BROMIDE 10 MG/ML 10 ML VIAL IV ONE (11:36)
[2018-06-23] MEDS ORDERED: LIDOCAINE 1%-EPI 1:100,000 20 ML VIAL SQ ONE ×2 (11:57)
[2018-06-23] MEDS ORDERED: BACITRACIN 500 UNIT/GM OINT 28.4 GM TUBE TOPICAL ONE (12:24)
--- NOTE | 2018-06-23 12:45 | P.OP ---
Date of Procedure: 06/23/18 Preoperative Diagnosis: Deviated nasal septum Inferior turbinate hypertrophy Chronic sinusitis Postoperative Diagnosis: Same Procedure(s) Performed: Septoplasty Outfracture and submucous resection inferior turbinates Bilateral endoscopic sinus surgery including bilateral maxillary antrostomy with removal of tissue from the maxillary sinuses, bilateral anterior and posterior ethmoidectomy, bilateral frontal sinusotomy including balloon sinus plasty and exploration, right sphenoidotomy with exploration and balloon sinus plasty Anesthesia: LOVELY Surgeon: Prabhjot Garcia Estimated Blood Loss (ml): 10 Pathology: other (Nasal septal bone and cartilage and sinus contents) Condition: stable Disposition: PACU Indications for Procedure: This is a 47-year-old white male whose had chronic sinusitis and nasal airway obstruction with congestion. Computed tomography scan shows evidence of chronic sinusitis diffusely. He's also had generalized headaches and sees a neurologist for this. He does understand clearly that not all of his headaches will likely resolve with sinus surgery Operative Findings: Bilateral nasal septal deviation, inferior turbinate hypertrophy, diffuse chronic sinusitis with inflammation of the maxillary sinuses with small polyps, diffuse inflammation throughout the anterior and posterior ethmoid air cells as well as frontal sinuses and right sphenoid sinus Description of Procedure: The patient was brought in the operative suite and placed in supine position. The patient underwent induction of general anesthesia with oral endotracheal intubation without difficulty. The patient was prepped and draped in usual aseptic fashion with the orbits in the operative field for monitoring throughout the case and the computed tomography scan on the computer screen for review throughout the case also. 1% lidocaine with 1-100,000 epinephrine was infused submucosally both sides nasal septum and lateral nasal kaur as well as anterior tips the middle turbinates bilaterally. While this taking vasoconstrictive effect the inferior turbinates were infractured with [place] elevator partial submucous resection inferior turbinates performed with Coblation device loss ablating a portion of submucosal soft tissue and then outfractured with [place] elevator. A left hemitransfixion incision was made with the mucoperichondrial me compressional flap on the left elevated. Bony cartilaginous junction was disarticulated and a compressive flap on the right was elevated. Bony nasal septal deformities were removed Shaw forceps. An inferior cartilaginous strip was removed leaving a full 1.5 cm caudal strut. Checking intranasally this corrected the nasoseptal deformities and the hemitransfixion incision was closed with a running 4-0 chromic suture. Full 0 endoscopic examination is performed bilaterally. Beginning on the left the middle turbinate was medialized with a [place] elevator. Next ostium was located with a ballpoint probe and infundibulotomy was performed followed by secondary. The maxillary ostium was enlarged at the expense anterior posterior fontanelle taking care anteriorly not to injure the lacrimal bone. Sinus was evaluated with a 30 endoscope and small polyps removed with giraffe forceps. Anterior and posterior ethmoidectomy was then performed from anterior posterior to the level of the skull base and the ethmoid air cells were opened. There was diffuse polypoid change in the ethmoid air cells. Balloon sinus plasty was then performed with the entellus light guided system of the bilateral frontal as well as right sphenoid sinuses with exploration and opening ostia bilaterally. The frontal and sphenoid sinuses that were opened with entellus light guided system over the were then explored endoscopically. Proceeding on the right the procedures were followed as they were on the left including medialization middle turbinate infundibulotomy uncinectomy marked maxillary antrostomy with removal of tissue and exercises anterior posterior ethmoidectomy. Once this completed standard and firm nasal pore nasal dressings were placed the middle meatus under direct visualization. Bilateral Lorenzo airway splints coated bacitracin ointment placed in nasal cavities and sutured transseptal 4-0 nylon suture. The dissection in oral gastric fashion. The patient allowed to emerge from general anesthesia and tolerated procedure well was extubated in the operating suite and transferred to postop recovery area in satisfactory condition.
[2018-06-23] MEDS ORDERED: diphenhydrAMINE 50 MG/ML 1 ML VIAL IVP ONE (13:05)
[2018-06-23 13:13] VITALS: TEMP 97
[2018-06-23] MEDS ORDERED: HYDROcodone/APAP 5-325MG 1 EACH TAB PO ONE (13:51)
[2018-06-23 13:58] VITALS: RESP 16
[2018-06-23 14:29] VITALS: BP 126/74; PULSE 69
== END 2018-06-23 14:50 | disposition home or self-care (01) ==
LOC: OR 09:10
PROVIDERS: ATTEND Otolaryngology
DX: J34.2 Deviated nasal septum (principal); J32.9 Chronic sinusitis, unspecified; J34.3 Hypertrophy of nasal turbinates; K21.9 Gastro-esophageal reflux disease without esophagitis; R12 Heartburn; F41.9 Anxiety disorder, unspecified; M19.90 Unspecified osteoarthritis, unspecified site; H91.90 Unspecified hearing loss, unspecified ear; F32.9 Major depressive disorder, single episode, unspecified; I10 Essential (primary) hypertension; K58.9 Irritable bowel syndrome, unspecified; I25.2 Old myocardial infarction; Z79.02 Long term (current) use of antithrombotics/antiplatelets; Z79.890 Hormone replacement therapy; Z79.899 Other long term (current) drug therapy; Z79.891 Long term (current) use of opiate analgesic; Z79.52 Long term (current) use of systemic steroids; Z86.73 Personal history of transient ischemic attack (TIA), and cerebral infarction without residual deficits; Z86.2 Personal history of diseases of the blood and blood-forming organs and certain disorders involving the immune mechanism; Z86.19 Personal history of other infectious and parasitic diseases; Z87.891 Personal history of nicotine dependence; Z88.8 Allergy status to other drugs, medicaments and biological substances
CPT/HCPCS: 88305; 88300; 30520; 30140; 31267; 31253; 31257; C1726; J2250; J1200; J2710; J2270; J2405; J2001; J3010; J1170; J0690; J2704

== ENCOUNTER 2018-06-25 08:54 | Emergency (ER) | payer MEDICARE ==
--- NOTE | 2018-06-25 09:33 | ED ---
Skin/Abscess/FB HPI - General Chief complaint: Skin/Abscess/Foreign Body Stated complaint: possible blood clot Time Seen by Provider: 06/25/18 09:23 Source: patient, RN notes reviewed Mode of arrival: ambulatory - History of Present Illness Initial comments: 47-year-old male presents emergency Department chief complaint right arm swelling. Patient states he had an IV in his right arm on Thursday for sinus surgery. Patient follow-up today had a stent removed and states that his ammonia rule out blood clot. Patient had a history of superficial from phlebitis in the right arm. Patient is left-hand dominant. Patient denies any chest pain or shortness breath. Patient states it's red, swollen and slightly painful. - Related Data Home Medications Medication Instructions Recorded Confirmed Cephalexin [Keflex] 500 mg PO Q6HR 06/25/18 06/25/18 Docusate [Colace] 100 mg PO BID 06/25/18 06/25/18 Hydrocodone/Acetaminophen [[place] 1 - 2 tab PO Q6H PRN 06/25/18 06/25/18 5-325] Allergies Allergy/AdvReac Type Severity Reaction Status Date / Time fluticasone [From Flonase] Allergy swelling Verified 06/25/18 09:29 of throat prednisone AdvReac Rectal Verified 06/25/18 09:29 Bleeding Review of Systems ROS Statement: Those systems with pertinent positive or pertinent negative responses have been documented in the HPI. ROS Other: All systems not noted in ROS Statement are negative. Past Medical History Past Medical History: Chest Pain / Angina, CVA/TIA, GERD/Reflux, Neurologic Disorder Additional Past Medical History / Comment(s): superficial blood clot in right arm History of Any Multi-Drug Resistant Organisms: None Reported Past Surgical History: Cholecystectomy, Hernia Repair, Orthopedic Surgery Additional Past Surgical History / Comment(s): had egd, colonoscopy, pain clinic prodedure for bilat shoulders, sinus surgery Past Anesthesia/Blood Transfusion Reactions: No Reported Reaction Past Psychological History: Anxiety Smoking Status: Former smoker Past Alcohol Use History: None Reported Past Drug Use History: Marijuana General Exam General appearance: alert, in no apparent distress Head exam: Present: atraumatic, normocephalic, normal inspection Respiratory exam: Present: normal lung sounds bilaterally. Absent: respiratory distress, wheezes, rales, rhonchi, stridor Cardiovascular Exam: Present: regular rate, normal rhythm, normal heart sounds. Absent: systolic murmur, diastolic murmur, rubs, gallop, clicks Extremities exam: Present: other (Right arm there is mild erythema of the forearm, tenderness to palpation pulses equal bilaterally the radius, cap refill less than 2 seconds) Skin exam: Present: warm, dry Course Vital Signs 06/25/18 09:07 Temperature 98.2 F Pulse Rate 86 Respiratory 16 Rate Blood Pressure 117/84 O2 Sat by Pulse 98 Oximetry Medical Decision Making - Medical Decision Making 47-year-old male presents emergency department for right arm pain. Patient ultrasound shows superficial from phlebitis. This is consistent clinically. Patient is on antibiotics currently are concerned for secondary infection. Patient will do warm compresses and anti-inflammatories. Disposition Clinical Impression: Superficial thrombophlebitis of right upper extremity Disposition: HOME SELF-CARE Condition: Stable Instructions: Superficial Thrombophlebitis (ED) Additional Instructions: Please return to the Emergency Department if symptoms worsen or any other concerns. Take [id number] anti-inflammatories and apply warm compresses as directed. Is patient prescribed a controlled substance at d/c from ED?: No Referrals: Will Mendoza MD [Primary Care Provider] - 1-2 days Time of Disposition: 11:10
--- NOTE | 2018-06-25 10:58 | US ---
EXAMINATION TYPE: US venous doppler duplex UE RT DATE OF EXAM: 06/25/2018 COMPARISON: NONE CLINICAL HISTORY: Pain. Right lower arm pain and edema. Recent IV right wrist 2 days ago SIDE PERFORMED: Right Grayscale, color doppler, spectral doppler imaging performed of the deep veins of the upper extremiti es. Right Arm: No evidence of DVT. Superficial thrombus noted within right basilic vein and cephalic vein right lower arm There is normal flow, compressibility and vascular waveforms within the deep veins including visualiz ed portions of the right internal jugular vein, subclavian vein, axillary vein and brachial veins, ra dial veins and ulnar veins. IMPRESSION: Superficial venous thrombosis within the forearm. No evident deep venous thrombosis.
[2018-06-25 11:20] VITALS: BP 112/84; PULSE 68; RESP 18; TEMP 97.6
== END 2018-06-25 11:20 | disposition home or self-care (01) ==
LOC: EC 08:54
DX: I80.8 Phlebitis and thrombophlebitis of other sites (principal); Z87.891 Personal history of nicotine dependence; Z88.8 Allergy status to other drugs, medicaments and biological substances; Z79.899 Other long term (current) drug therapy
CPT/HCPCS: 99283

== ENCOUNTER 2019-04-02 15:56 | Emergency (ER) | payer MEDICARE ==
[2019-04-02] MEDS ORDERED: KETOROLAC 30 MG/ML 1 ML VIAL IVP STA (16:26)
[2019-04-02] MEDS ORDERED: SODIUM CHLORIDE 0.9% 1,000 ML IV STA (16:26)
--- NOTE | 2019-04-02 16:28 | ED ---
General Adult HPI - General Chief complaint: Back Pain/Injury Stated complaint: back pain/near syncope Time Seen by Provider: 04/02/19 16:11 Source: patient Mode of arrival: wheelchair Limitations: no limitations - History of Present Illness Initial comments: Dictation was produced using [employer] dictation software. please excuse any gra mmatical, word or spelling errors. Chief Complaint: 48-year-old male with past medical history of identified neurologic lesions, CVA, blood clots presents with right lower back pain. History of Present Illness: 48-year-old male has multiple comorbidities. Presents today with 2 days of worsening right lower back pain. He states his symptoms are worse with movements however sometimes a do occur at rest. Patient states that his pain is severe and lasting for several seconds up to minutes and subsides. Patient denies any history of kidney stones. Does not notice any abnormalities to his urine. No nausea or vomiting. Patient states that the pain is severe causing him to fall to the floor. States that it's especially exacerbated with right sidebending. Denies any trauma recently. No fever, chills or night sweats. The ROS documented in this emergency department record has been reviewed and confirmed by me. Those systems with pertinent positive or negative responses h ave been documented in the HPI. All other systems are other negative and/or noncontributory. PHYSICAL EXAM: General Impression: Alert and oriented x3, not in acute distress HEENT: Normocephalic atraumatic, extra-ocular movements intact, pupils equal and reactive to light bilaterally, mucous membranes moist. Cardiovascular: Heart regular rate and rhythm, S1&S2 audible, no murmurs, rubs or gallops Chest: Lungs clear to auscultation bilaterally, no rhonchi, no wheeze, no rales Abdomen: Bowel sounds present, abdomen soft, non-tender, non-distended, no organomegaly Musculoskeletal: Pulses present and equal in all extremities, no peripheral edema, pain reproduced with truncal rotation to the right Motor: no focal deficits noted Neurological: CN II-XII grossly intact, no focal motor or sensory deficits noted Skin: Intact with no visualized rashes Psych: Normal affect and mood ED course: 48 yOld male presents with chief complaint of right lower back pain. As upon arrival are within acceptable limits. Patient is in acute distress when pain is reproduced. Given patient's comorbidities and no history of blood clots imaging studies will be obtained.Laboratory evaluation obtained. Leukocytosis. 0.9 likely secondary to stress. Coag panel unremarkable. Metabolic panel is negative. Urinalysis is negative. Computed tomography scan of the abdomen and pelvis shows no acute processes. Patient given intravenous fluids and analgesia with improvement of symptoms. Patient's clinical presentation is likely secondary to lower back spasms. Patient told to maintain good hydration. He is given prescription for muscle relaxants. Aggressive follow-up with primary care physician upon discharge. - Related Data Home Medications Medication Instructions Recorded Confirmed Docusate [Colace] 200 mg PO DAILY PRN 06/25/18 04/02/19 Omeprazole 20 mg PO DAILY 04/02/19 04/02/19 Previous Rx's Medication Instructions Recorded Baclofen [Lioresal] 10 mg PO TID PRN #12 tablet 04/02/19 Allergies Allergy/AdvReac Type Severity Reaction Status Date / Time fluticasone [From Flonase] Allergy swelling Verified 04/02/19 16:27 of throat prednisone AdvReac Rectal Verified 04/02/19 16:27 Bleeding Review of Systems ROS Statement: Those systems with pertinent positive or pertinent negative responses have been documented in the HPI. ROS Other: All systems not noted in ROS Statement are negative. Past Medical History Past Medical History: Chest Pain / Angina, CVA/TIA, GERD/Reflux, Neurologic Disorder Additional Past Medical History / Comment(s): superficial blood clot in right arm History of Any Multi-Drug Resistant Organisms: None Reported Past Surgical History: Cholecystectomy, Hernia Repair, Orthopedic Surgery Additional Past Surgical History / Comment(s): had egd, colonoscopy, pain clinic prodedure for bilat shoulders, sinus surgery Past Anesthesia/Blood Transfusion Reactions: No Reported Reaction Past Psychological History: Anxiety Smoking Status: Former smoker Past Alcohol Use History: None Reported Past Drug Use History: Marijuana General Exam Limitations: no limitations Course Vital Signs 04/02/19 16:05 Temperature 98.2 F Pulse Rate 96 Respiratory 16 Rate Blood Pressure 135/72 O2 Sat by Pulse 97 Oximetry Medical Decision Making - Lab Data Result diagrams: 04/02/19 16:50 04/02/19 16:50 Lab Results 04/02/19 04/02/19 04/02/19 Range/Units 16:50 16:50 16:50 WBC 12.9 H (3.8-10.6) k/uL RBC 5.06 (4.30-5.90) m/uL Hgb 15.1 (13.0-17.5) gm/dL Hct 44.9 (39.0-53.0) % MCV 88.8 (80.0-100.0) fL MCH 29.9 (25.0-35.0) pg MCHC 33.7 (31.0-37.0) g/dL RDW 14.9 (11.5-15.5) % Plt Count 291 (150-450) k/uL Neutrophils % 73 % Lymphocytes % 18 % Monocytes % 4 % Eosinophils % 3 % Basophils % 1 % Neutrophils # 9.5 H (1.3-7.7) k/uL Lymphocytes # 2.3 (1.0-4.8) k/uL Monocytes # 0.5 (0-1.0) k/uL Eosinophils # 0.4 (0-0.7) k/uL Basophils # 0.1 (0-0.2) k/uL PT 10.1 (9.0-12.0) sec INR 0.9 (<1.2) Sodium 141 (137-145) mmol/L Potassium 4.2 (3.5-5.1) mmol/L Chloride 107 (98-107) mmol/L Carbon Dioxide 22 (22-30) mmol/L Anion Gap 12 mmol/L BUN 12 (9-20) mg/dL Creatinine 1.05 (0.66-1.25) mg/dL Est GFR (CKD-EPI)AfAm >90 (>60 ml/min/1.73 sqM) Est GFR (CKD-EPI)NonAf 83 (>60 ml/min/1.73 sqM) Glucose 112 H (74-99) mg/dL Calcium 9.7 (8.4-10.2) mg/dL Urine Color Urine Appearance (Clear) Urine pH (5.0-8.0) Ur Specific [place] (1.001-1.035) Urine Protein (Negative) Urine Glucose (UA) (Negative) Urine Ketones (Negative) Urine Blood (Negative) Urine Nitrite (Negative) Urine Bilirubin (Negative) Urine Urobilinogen (<2.0) mg/dL Ur Leukocyte Esterase (Negative) 04/02/19 Range/Units 16:50 WBC (3.8-10.6) k/uL RBC (4.30-5.90) m/uL Hgb (13.0-17.5) gm/dL Hct (39.0-53.0) % MCV (80.0-100.0) fL MCH (25.0-35.0) pg MCHC (31.0-37.0) g/dL RDW (11.5-15.5) % Plt Count (150-450) k/uL Neutrophils % % Lymphocytes % % Monocytes % % Eosinophils % % Basophils % % Neutrophils # (1.3-7.7) k/uL Lymphocytes # (1.0-4.8) k/uL Monocytes # (0-1.0) k/uL Eosinophils # (0-0.7) k/uL Basophils # (0-0.2) k/uL PT (9.0-12.0) sec INR (<1.2) Sodium (137-145) mmol/L Potassium (3.5-5.1) mmol/L Chloride (98-107) mmol/L Carbon Dioxide (22-30) mmol/L Anion Gap mmol/L BUN (9-20) mg/dL Creatinine (0.66-1.25) mg/dL Est GFR (CKD-EPI)AfAm (>60 ml/min/1.73 sqM) Est GFR (CKD-EPI)NonAf (>60 ml/min/1.73 sqM) Glucose (74-99) mg/dL Calcium (8.4-10.2) mg/dL Urine Color Yellow Urine Appearance Clear (Clear) Urine pH 6.0 (5.0-8.0) Ur Specific [place] 1.019 (1.001-1.035) Urine Protein Negative (Negative) Urine Glucose (UA) Negative (Negative) Urine Ketones Negative (Negative) Urine Blood Negative (Negative) Urine Nitrite Negative (Negative) Urine Bilirubin Negative (Negative) Urine Urobilinogen <2.0 (<2.0) mg/dL Ur Leukocyte Esterase Negative (Negative) Disposition Clinical Impression: Back spasm Disposition: HOME SELF-CARE Condition: Good Instructions (If sedation given, give patient instructions): Acute Low Back Pain (ED) Prescriptions: Baclofen [Lioresal] 10 mg PO TID PRN #12 tablet PRN Reason: Spasms Is patient prescribed a controlled substance at d/c from ED?: No Referrals: Will Mendoza MD [Primary Care Provider] - 1-2 days Time of Disposition: 17:48
[2019-04-02 17:08] LABS: Appearance,Urine Clear (Clear); Basophils # (A) 0.1 k/uL (0-0.2); Basophils % (A) 1 %; Bilirubin,Urine Negative (Negative); Blood,Urine Negative (Negative); Color,Urine Yellow; Eosinophils # (A) 0.4 k/uL (0-0.7); Eosinophils % (A) 3 %; Glucose,Urine (UA) Negative (Negative); HCT 44.9 % (39.0-53.0); HGB 15.1 gm/dL (13.0-17.5); Ketones,Urine Negative (Negative); Leukocyte Esterase,Urine Negative (Negative); Lymphocytes # (A) 2.3 k/uL (1.0-4.8); Lymphocytes % (A) 18 %; MCH 29.9 pg (25.0-35.0); MCHC 33.7 g/dL (31.0-37.0); MCV 88.8 fL (80.0-100.0); Mean Platelet Volume 7.6; Monocytes # (A) 0.5 k/uL (0-1.0); Monocytes % (A) 4 %; Neutrophils # (A) 9.5 k/uL (1.3-7.7); Neutrophils % (A) 73 %; Nitrite,Urine Negative (Negative); Platelet Count 291 k/uL (150-450); Protein,Urine Negative (Negative); RBC 5.06 m/uL (4.30-5.90); RDW 14.9 % (11.5-15.5); Specific Gravity,Urine 1.019 (1.001-1.035); Urobilinogen,Urine <2.0 mg/dL (<2.0); WBC 12.9 k/uL (3.8-10.6)
[2019-04-02 17:21] LABS: INR 0.9 (<1.2); Prothrombin Time 10.1 sec (9.0-12.0)
--- NOTE | 2019-04-02 17:31 | CT ---
EXAMINATION TYPE: CT abdomen pelvis w con DATE OF EXAM: 04/02/2019 COMPARISON: CT abdomen and pelvis June 07, 2018 HISTORY: right flank pain CT DLP: 1008.8 mGycm, Automated Exposure Control for Dose Reduction was Utilized. CONTRAST: CT scan of the abdomen and pelvis is performed without oral but with IV Contrast, patient injected wi th 100 mL of Isovue 300. FINDINGS: LUNG BASES: No significant abnormality is appreciated. LIVER/GB: Liver is diffusely low dense consistent with marked fatty infiltration. Cholecystectomy cli ps are redemonstrated. PANCREAS: No significant abnormality is seen. SPLEEN: No significant abnormality is seen. ADRENALS: No significant abnormality is seen. KIDNEYS: Symmetric cortical medullary uptake and excretion without hydronephrosis seen bilaterally. BOWEL: Debris-filled stomach suggests recent meal ingestion. No suspicious small or large bowel dilat ation. Mild wall thickening distal transverse colon through the rectum. Cannot exclude colitis at thi s level. Evaluation is suboptimal due to lack of enteric contrast. Findings favored product of poor d istention. Normal-appearing appendix from cecum. PROSTATE/SEMINAL VESICLES: Prostate gland is upper limits of normal in size with some central calcifi cations. LYMPH NODES: No greater than 1cm abdominal or pelvic lymph nodes are appreciated. OSSEOUS STRUCTURES: No significant abnormality is seen. OTHER: Mild calcified plaque of the aorta extends into branch vessels. Small fat-containing left ingu inal hernia. IMPRESSION: No significant new or acute finding is seen to account for patient's clinical symptoms o f right flank pain.
[2019-04-02 17:41] LABS: African American GFR (CKD) >90 (>60 ml/min/1.73 sqM); Anion Gap 12 mmol/L; Blood Urea Nitrogen 12 mg/dL (9-20); Calcium 9.7 mg/dL (8.4-10.2); Carbon Dioxide 22 mmol/L (22-30); Chloride 107 mmol/L (98-107); Glucose 112 mg/dL (74-99); Potassium 4.2 mmol/L (3.5-5.1); Sodium 141 mmol/L (137-145)
[2019-04-02] MEDS ORDERED: LIDOCAINE 5% PATCH TOPICAL STA (17:42)
[2019-04-02 17:56] VITALS: BP 117/85; PULSE 83; RESP 18; TEMP 98.3
== END 2019-04-02 17:55 | disposition home or self-care (01) ==
LOC: EC 15:56
DX: M62.830 Muscle spasm of back (principal); K21.9 Gastro-esophageal reflux disease without esophagitis; Z86.73 Personal history of transient ischemic attack (TIA), and cerebral infarction without residual deficits; Z87.891 Personal history of nicotine dependence; Z79.899 Other long term (current) drug therapy; Z88.8 Allergy status to other drugs, medicaments and biological substances
CPT/HCPCS: 36415; 80048; 85025; 85610; 81003; 74177; 99284; 96374; 96361; J1885; Q9967

== ENCOUNTER → 2019-04-22 | Outpatient (CLI) | payer MEDICARE ==
--- NOTE | 2019-04-24 07:39 | MR ---
EXAMINATION TYPE: MR brain wo con DATE OF EXAM: 04/22/2019 COMPARISON: MRI brain May 07, [address] brain October 17, 2011. HISTORY: Headaches TECHNIQUE: Multiplanar, multisequence imaging of the brain and brainstem is performed without IV cont rast. FINDINGS: Diffusion weighted images demonstrate no evidence of a recent infarct or other diffusion abnormality. There is no suspicious extraaxial fluid collection . The ventricular system and cisternal spaces are normal in size and appearance. The brain volume is age appropriate. Scattered foci of T2 hyperinten sity are redemonstrated throughout the white matter bilaterally. I estimate 40-50 scattered small les ions throughout the superficial deep and periventricular white matter. Slight progression from 2016 s tudies are present for reference enlarging 7 to 8 mm left frontal lesion axial image 22. Midline structures demonstrate normal morphology. The craniocervical junction appears within normal limits. Normal vascular flow voids are present. Mild to moderate mucosal thickening involving the lef t frontal sinus. [id number] mucosal thickening involving anterior ethmoid sinuses bilaterally. Remainder of sinuses are clear. Globes are intact bilaterally. Nasal septum remains deviated to right of midline. IMPRESSION: Moderate nonspecific white matter changes may be on basis of altered vascular flow relate d to chronic migraine headaches. Some progression from older studies felt present. Chronic paranasal sinus disease redemonstrated.
--- NOTE | 2019-04-24 07:42 | MR ---
EXAMINATION TYPE: MR angio head wo con DATE OF EXAM: 04/22/2019 COMPARISON: Same day MRI brain and older studies. Prior MRA brain June 26, 2011. HISTORY: Headaches TECHNIQUE: Time of flight images focusing on the [place] were performed without contrast.. 2-D and 3-D postprocessing imaging is performed on an independent workstation and reviewed. FINDINGS: There is dominant left vertebral artery. There is no significant focal stenosis or aneurysm al change in the posterior circulation. Hypoplastic bilateral posterior communicating arteries are re demonstrated. Anterior circulation shows no obvious new aneurysm. Patent anterior communicating artery is not well seen on current study. Current study is suboptimal as there is more motion artifact degradation noted . IMPRESSION: Suboptimal study without obvious new intracranial aneurysm seen.
== END | disposition home or self-care (01) ==
LOC: RADMRIMAIN 20:02
PROVIDERS: ATTEND Family Medicine
DX: R90.89 Other abnormal findings on diagnostic imaging of central nervous system (principal); R51 Headache
CPT/HCPCS: 70544; 70551

== ENCOUNTER 2020-06-15 10:46 | Emergency (ER) | payer MEDICARE ==
[2020-06-15] MEDS ORDERED: HYDROmorphone 1 MG/ML 1 ML SYRINGE IM STA (11:12)
[2020-06-15] MEDS ORDERED: DIAZEPAM 5 MG/ML 2 ML INJ IM STA (11:12)
--- NOTE | 2020-06-15 11:19 | ED ---
Back Pain HPI - General Chief Complaint: Back Pain/Injury Stated Complaint: BACK PAIN Time Seen by Provider: 06/15/20 11:03 Source: patient, family, RN notes reviewed Limitations: no limitations - History of Present Illness Initial Comments: 49-year-old male presents emergency Department with chief complaint of low back pain. Patient states that he fell Thursday. Patient states been having increasing pain. Patient states he feels very stiff. Patient states his proximal medications with minimal relief. He denies any bowel bladder incontinence or retention no difficulty ambulate other than causing discomfort. Patient states he has no abdominal pain. Patient states he had some pain and radiates into his upper legs and has no symptoms into his lower leg, feet region. Patient states he has had multiple issues with his back in the past. Patient states when he fell he had no head injury he states that his pain and radiates up with denies any localized upper back or neck discomfort no loss consciousness no headache no dizziness. - Related Data Previous Rx's Medication Instructions Recorded HYDROcodone/APAP 10-325MG [[place] 1 tab PO Q6HR PRN 3 Days #12 tab 06/15/20 10-325] Ibuprofen [Motrin] 800 mg PO Q6HR #20 tab 06/15/20 Orphenadrine [Norflex] 100 mg PO Q12H #14 tablet.er 06/15/20 Allergies Allergy/AdvReac Type Severity Reaction Status Date / Time fluticasone [From Flonase] Allergy swelling Verified 06/15/20 11:32 of throat prednisone AdvReac Rectal Verified 06/15/20 11:32 Bleeding Review of Systems ROS Statement: Those systems with pertinent positive or pertinent negative responses have been documented in the HPI. ROS Other: All systems not noted in ROS Statement are negative. Past Medical History Past Medical History: Chest Pain / Angina, CVA/TIA, GERD/Reflux, Neurologic Disorder Additional Past Medical History / Comment(s): superficial blood clot in right arm History of Any Multi-Drug Resistant Organisms: None Reported Past Surgical History: Cholecystectomy, Hernia Repair, Orthopedic Surgery Additional Past Surgical History / Comment(s): had egd, colonoscopy, pain clinic prodedure for bilat shoulders, sinus surgery Past Anesthesia/Blood Transfusion Reactions: No Reported Reaction Past Psychological History: Anxiety Smoking Status: Never smoker Past Alcohol Use History: None Reported Past Drug Use History: Marijuana General Exam Limitations: no limitations General appearance: alert, in no apparent distress Head exam: Present: atraumatic, normocephalic, normal inspection Eye exam: Present: normal appearance, PERRL, EOMI. Absent: scleral icterus, conjunctival injection, periorbital swelling Neck exam: Present: normal inspection. Absent: tenderness, meningismus, lymphadenopathy Respiratory exam: Present: normal lung sounds bilaterally. Absent: respiratory distress, wheezes, rales, rhonchi, stridor Cardiovascular Exam: Present: regular rate, normal rhythm, normal heart sounds. Absent: systolic murmur, diastolic murmur, rubs, gallop, clicks GI/Abdominal exam: Present: soft, normal bowel sounds. Absent: distended, tenderness, guarding, rebound, rigid Extremities exam: Present: normal inspection, full ROM (Lower extremity full range of motion), other (Lower extremity strength equal bilaterally, neurovascular intact there is equal color equal warmth) Back exam: Present: normal inspection, tenderness, muscle spasm, paraspinal tenderness. Absent: full ROM (Decreased range of motion secondary to pain patient reports increasing pain and spasms), CVA tenderness (R), CVA tenderness (L), vertebral tenderness Neurological exam: Present: alert, oriented X3, CN II-XII intact, reflexes normal. Absent: motor sensory deficit Skin exam: Present: warm, dry, intact, normal color. Absent: rash Course Vital Signs 06/15/20 10:50 Temperature 97.4 F L Pulse Rate 68 Respiratory 16 Rate Blood Pressure 146/78 O2 Sat by Pulse 99 Oximetry Medical Decision Making - Medical Decision Making 49-year-old male presented for low back pain after a fall. He has no red flag symptoms she is able to ambulate and has no current lower extremity symptoms. Patient x-ray were reviewed show some arthritic changes no significant changes no fracture. Patient agrees with the plan and discharged with follow-up with on-call orthopedics. Patient was able to stand and ambulate on his own. Disposition Clinical Impression: Lumbar back pain Disposition: HOME SELF-CARE Condition: Stable Instructions (If sedation given, give patient instructions): Acute Low Back Pain (ED) Additional Instructions: Please return to the Emergency Department if symptoms worsen or any other concerns. Prescriptions: Ibuprofen [Motrin] 800 mg PO Q6HR #20 tab HYDROcodone/APAP 10-325MG [[place] 10-325] 1 tab PO Q6HR PRN 3 Days #12 tab PRN Reason: pain Orphenadrine [Norflex] 100 mg PO Q12H #14 tablet.er Is patient prescribed a controlled substance at d/c from ED?: Yes When asked, does pt state using other controlled substances?: No If prescribed controlled substance>3 days was MAPS reviewed?: Prescribed <3 Days If opioid is for acute pain is fill amount 7 days or less?: Yes If Rx opioid, was Start Talking consent form obtained?: Yes Referrals: Will Mendoza MD [Primary Care Provider] - 1-2 days Nasim Barber DO [Doctor of Osteopathic Medicine] - 1-2 days Time of Disposition: 12:26
--- NOTE | 2020-06-15 12:12 | XR ---
EXAMINATION TYPE: XR lumbar spine 2 or 3V DATE OF EXAM: 06/15/2020 CLINICAL HISTORY: Fall 5 days ago. Lower back pain. TECHNIQUE: Frontal and lateral images of the lumbar spine. Axial COMPARISON: None FINDINGS: There are 5 lumbar type vertebral bodies identified. The lumbar spine shows satisfactory alignment without evidence of acute fracture or dislocation. Vertebral body heights and disk space he ights are within normal limits. Mild multilevel anterior osteophyte spurring. Calcified atherosclerot ic disease. IMPRESSION: No acute fracture or dislocation is seen in the lumbar spine.
[2020-06-15 12:37] VITALS: BP 139/78; PULSE 78; RESP 18; TEMP 97.9
== END 2020-06-15 12:37 | disposition home or self-care (01) ==
LOC: EC 10:46
DX: M54.5 Low back pain (principal); Z88.8 Allergy status to other drugs, medicaments and biological substances; Z86.73 Personal history of transient ischemic attack (TIA), and cerebral infarction without residual deficits; W18.30XA Fall on same level, unspecified, initial encounter; Y92.009 Unspecified place in unspecified non-institutional (private) residence as the place of occurrence of the external cause
CPT/HCPCS: 72100; 99283; 96372 ×2; J3360; J1170

== ENCOUNTER 2021-08-29 16:42 | Emergency (ER) | payer MEDICARE ==
[2021-08-29 18:02] VITALS: RESP 18
[2021-08-29] MEDS ORDERED: DEXAMETHASONE SOD PHOSPHATE 10 MG/ML 1 ML VIAL IVP STA (19:21)
[2021-08-29] MEDS ORDERED: SODIUM CHLORIDE 0.9% 1,000 ML IV ONE (19:21)
[2021-08-29] MEDS ORDERED: ACETAMINOPHEN TAB 500 MG TAB PO STA (19:21)
[2021-08-29] MEDS ORDERED: IBUPROFEN IV 800 MG in SODIUM CHLORIDE 0.9% 250 ML IV ONE (19:21)
[2021-08-29] MEDS ORDERED: ONDANSETRON 4 MG/2 ML VIAL IVP STA (19:21)
[2021-08-29] MEDS ORDERED: BAMLANIVIMAB (EUA) 700 MG, ETESEVIMAB (EUA) 1,400 MG in SODIUM CHLORIDE 0.9% 100 ML IVPB ONE (20:00)
[2021-08-29] MEDS ORDERED: SODIUM CHLORIDE 0.9% 50 ML IVPB ONE (20:30)
--- NOTE | 2021-08-29 21:07 | XR ---
EXAMINATION TYPE: XR chest 2V DATE OF EXAM: 08/29/2021 COMPARISON: 05/31/2018 HISTORY: 51 years Male. STUDY INDICATION GIVEN: covid; chest discomfort . TECHNIQUE: Frontal and lateral chest radiographs. IMPRESSION: No focal airspace disease, pneumothorax or pleural effusion. The cardiomediastinal silhouette is normal in appearance. No acute osseous abnormalities seen.
--- NOTE | 2021-08-29 21:32 | ED ---
General Adult HPI - General Chief complaint: Fever Stated complaint: Shortness of Breath, Fever Time Seen by Provider: 08/29/21 19:09 Source: patient Mode of arrival: wheelchair Limitations: physical limitation - History of Present Illness Initial comments: 51-year-old male patient presents to the emergency department today for evaluation of fever, cough, shortness of breath. Symptoms started 3 days ago. States his son did have COVID [place]. He denies taking any medication for his symptoms. He denies any chest pain, dizziness, or weakness. Denies any vomiting. Patient denies any recent rash, abdominal pain, diarrhea, constipation, back pain, numbness, tingling, dizziness, weakness, hematuria, dysuria, urinary urgency, urinary frequency, headache, visual changes, or any other complaints. - Related Data Previous Rx's Medication Instructions Recorded HYDROcodone/APAP 10-325MG [[place] 1 tab PO Q6HR PRN 3 Days #12 tab 06/15/20 10-325] Ibuprofen [Motrin] 800 mg PO Q6HR #20 tab 06/15/20 Orphenadrine [Norflex] 100 mg PO Q12H #14 tablet.er 06/15/20 Allergies Allergy/AdvReac Type Severity Reaction Status Date / Time fluticasone [From Flonase] Allergy swelling Verified 08/29/21 18:02 of throat prednisone AdvReac Rectal Verified 08/29/21 18:02 Bleeding Review of Systems ROS Statement: Those systems with pertinent positive or pertinent negative responses have been documented in the HPI. ROS Other: All systems not noted in ROS Statement are negative. Past Medical History Past Medical History: Chest Pain / Angina, CVA/TIA, GERD/Reflux, Neurologic Disorder Additional Past Medical History / Comment(s): superficial blood clot in right arm History of Any Multi-Drug Resistant Organisms: None Reported Past Surgical History: Cholecystectomy, Hernia Repair, Orthopedic Surgery Additional Past Surgical History / Comment(s): had egd, colonoscopy, pain clinic prodedure for bilat shoulders, sinus surgery Past Anesthesia/Blood Transfusion Reactions: No Reported Reaction Past Psychological History: Anxiety Smoking Status: Never smoker Past Alcohol Use History: None Reported Past Drug Use History: Marijuana General Exam Limitations: physical limitation General appearance: alert, in no apparent distress, other (This is a well-developed, well-nourished adult male in no acute distress.) ENT exam: Present: normal exam, normal oropharynx, mucous membranes moist Respiratory exam: Present: normal lung sounds bilaterally. Absent: respiratory distress, wheezes, rales, rhonchi, stridor Cardiovascular Exam: Present: regular rate, normal rhythm, normal heart sounds. Absent: systolic murmur, diastolic murmur, rubs, gallop, clicks GI/Abdominal exam: Present: soft, normal bowel sounds. Absent: distended, tenderness, guarding, rebound, rigid Neurological exam: Present: alert, oriented X3, CN II-XII intact Psychiatric exam: Present: normal affect, normal mood Skin exam: Present: warm, dry, intact, normal color. Absent: rash Course Vital Signs 08/29/21 08/29/21 08/29/21 17:52 19:20 20:06 Temperature 99.4 F Pulse Rate 89 79 Respiratory 18 18 18 Rate Blood Pressure 114/84 118/67 O2 Sat by Pulse 99 98 Oximetry 08/29/21 22:18 Temperature 98.8 F Pulse Rate 74 Respiratory 18 Rate Blood Pressure 120/76 O2 Sat by Pulse 96 Oximetry Medical Decision Making - Medical Decision Making 51-year-old male patient presented for evaluation of cough and shortness of breath. He did test positive for COVID-19. He was given IV dose of steroids. Does not want to continue on steroids as he has had GI bleed in the past he felt might be related to extended use. We did discuss supportive care symptom management. We discharged follow up with his primary care physician for recheck in 1-2 days. Return parameters were discussed in detail. He verbalizes understanding and agrees with this plan. My attending is Dr. Soto. - Lab Data Lab Results 08/29/21 Range/Units 18:04 Coronavirus (PCR) Detected A (Not Detectd) - Radiology Data Radiology results: report reviewed, image reviewed Two-view x-ray of the chest is obtained. Report was reviewed in its entirety. Impression by Dr. Haas shows no airspace disease. Cardiomediastinal silhouette is normal. No osseous abnormalities. Disposition Clinical Impression: COVID-19 Disposition: HOME SELF-CARE Condition: Good Instructions (If sedation given, give patient instructions): Coronavirus Disease 2019 (COVID-19), Fever in Adults (ED) Additional Instructions: Tips to help you feel better: -Maintain adequate fluid intake - especially water. -Rest, you are healing your body will require extra sleep. -Eat even if you do not feel like it - broth, jello, toast are fine if you cannot eat full meals. -Take tylenol and motrin alternating (if you have no allergies or have not been instructed to avoid these medications) to help with body aches and fevers. -Obtain over the counter vitamin C, zinc, and vitamin D3. -Take medications as prescribed. Follow-up with your primary care physician for recheck in 1-2 days. Return for any new, worsening, or concerning symptoms. Is patient prescribed a controlled substance at d/c from ED?: No Referrals: Will Mendoza MD [Primary Care Provider] - 1-2 days Time of Disposition: 22:00
[2021-08-29 22:20] VITALS: BP 120/76; PULSE 74; TEMP 98.8
== END 2021-08-29 22:20 | disposition home or self-care (01) ==
LOC: EC 16:42
DX: U07.1 COVID-19 (principal); Z88.8 Allergy status to other drugs, medicaments and biological substances
CPT/HCPCS: 87635; 71046; 99285; 96365; 96375; J1100; J2405; J1741; J3490

== ENCOUNTER 2022-12-05 09:26 | Emergency (ER) | payer MEDICARE ==
[2022-12-05 09:41] VITALS: BP 124/72; PULSE 75; RESP 18; TEMP 98
[2022-12-05] MEDS ORDERED: HYDROcodone/APAP 5-325MG 1 EACH TAB PO STA (09:54)
--- NOTE | 2022-12-05 09:57 | ED ---
Lower Extremity Injury HPI - General Chief Complaint: Extremity Injury, Lower Stated Complaint: Rt leg swollen/ pain Time Seen by Provider: 12/05/22 09:46 Source: patient, RN notes reviewed, old records reviewed Mode of arrival: ambulatory Limitations: no limitations - History of Present Illness Initial Comments: 52-year-old male, alert and oriented x4 presents to the emergency room with complaints of right inner thigh redness and swelling for the past 2 days. Does have history of superficial thrombophlebitis in his arms. He is concerned this may be a DVT. Denies any history of DVT. Does not take any blood thinners. Does take aspirin a day. States that he is disabled and mostly sedentary. Denies any chest pain or shortness of breath. History of CVA, angina and GERD. MD Complaint: other (redness right inner thigh ) -: days(s) (2) Severity scale (1-10): 10 - Related Data Previous Rx's Medication Instructions Recorded HYDROcodone/APAP 10-325MG [[place] 1 tab PO Q6HR PRN 3 Days #12 tab 06/15/20 10-325] Ibuprofen [Motrin] 800 mg PO Q6HR #20 tab 06/15/20 Orphenadrine [Norflex] 100 mg PO Q12H #14 tablet.er 06/15/20 Allergies Allergy/AdvReac Type Severity Reaction Status Date / Time fluticasone [From Flonase] Allergy swelling Verified 12/05/22 09:41 of throat prednisone AdvReac Rectal Verified 12/05/22 09:41 Bleeding Review of Systems ROS Statement: Those systems with pertinent positive or pertinent negative responses have been documented in the HPI. ROS Other: All systems not noted in ROS Statement are negative. Past Medical History Past Medical History: Chest Pain / Angina, CVA/TIA, GERD/Reflux, Neurologic Disorder Additional Past Medical History / Comment(s): superficial blood clot in right arm History of Any Multi-Drug Resistant Organisms: None Reported Past Surgical History: Cholecystectomy, Hernia Repair, Orthopedic Surgery Additional Past Surgical History / Comment(s): had egd, colonoscopy, pain clinic prodedure for bilat shoulders, sinus surgery Past Anesthesia/Blood Transfusion Reactions: No Reported Reaction Past Psychological History: Anxiety Smoking Status: Never smoker Past Alcohol Use History: None Reported Past Drug Use History: Marijuana General Exam Limitations: no limitations General appearance: alert, in no apparent distress Head exam: Present: atraumatic Eye exam: Present: normal appearance. Absent: scleral icterus, conjunctival injection, periorbital swelling, periorbital tenderness Neck exam: Present: full ROM. Absent: meningismus Respiratory exam: Absent: respiratory distress, accessory muscle use Cardiovascular Exam: Present: regular rate GI/Abdominal exam: Present: soft Right Upper Leg exam: Present: full ROM, tenderness, swelling (Right inner thigh), erythema. Absent: crepitus Knee exam: Present: full ROM. Absent: tenderness, swelling Lower Leg exam: Present: full ROM. Absent: tenderness, swelling Ankle exam: Present: full ROM. Absent: tenderness, swelling Foot/Toe exam: Present: full ROM. Absent: tenderness, swelling Neurovascular tendon exam: Present: no vascular compromise. Absent: abnormal cap refill, pallor, foot drop Neurological exam: Present: alert, oriented X3 Psychiatric exam: Present: normal affect, normal mood Skin exam: Present: warm, dry, normal color. Absent: cyanosis, diaphoretic, petechiae, pallor Course Vital Signs 12/05/22 09:39 Temperature 98 F Pulse Rate 75 Respiratory 18 Rate Blood Pressure 124/72 O2 Sat by Pulse 99 Oximetry Medical Decision Making - Medical Decision Making Ultrasound of the right leg is positive for superficial venous thrombosis right mid thigh. He is neurovascularly intact. Leg is pink warm and dry. He was directed to take Tylenol Motrin for any pain and discomfort along with warm moist compresses. Follow-up with his primary care doctor next week. Directed to return with any new or concerning symptoms. He is agreeable to this plan of care. Case discussed with Dr Dangelo. Was pt. sent in by a medical professional or institution (, PA, LIVE AMMUNITION INSPECTOR, urgent care, hospital, or fdc...) When possible be specific @ -No Did you speak to anyone other than the patient for history (EMS, parent, family, police, friend...)? What history was obtained from this source @ -No Did you review nursing and triage notes (agree or disagree)? Why? @ -I reviewed and agree with nursing and triage notes Were old charts reviewed (outside hosp., previous admission, EMS record, old EKG, old radiological studies, urgent care reports/EKG's, fdc records)? Report findings @ -No old charts were reviewed Differential Diagnosis (chest pain, altered mental status, abdominal pain women, abdominal pain men, vaginal bleeding, weakness, fever, dyspnea, syncope, headache, dizziness, GI bleed, back pain, seizure, CVA, palpatations, mental health, musculoskeletal)? @ -DVT, superficial thrombophlebitis, cellulitis EKG interpreted by me (3pts min.). @ -n/a X-rays interpreted by me (1pt min.). @ -None done CT interpreted by me (1pt min.). @ -None done U/S interpreted by me (1pt. min.). @ -no What testing was considered but not performed or refused? (CT, X-rays, U/S, labs)? Why? @ -None What meds were considered but not given or refused? Why? @ -None Did you discuss the management of the patient with other professionals (professionals i.e. , PA, LIVE AMMUNITION INSPECTOR, lab, RT, psych nurse, social psychologist, intellectual property lawyer, teacher, student officer, shoe parts caser)? Give summary @ -No Was smoking cessation discussed for >3mins.? @ -No Was critical care preformed (if so, how long)? @ -No Were there social determinants of health that impacted care today? How? (Homelessness, low income, unemployed, alcoholism, drug addiction, transportation, low edu. Level, literacy, decrease access to med. care, [place] [facility], rehab)? @ -No Was there de-escalation of care discussed even if they declined (Discuss DNR or withdrawal of care, Hospice)? DNR status @ -No What co-morbidities impacted this encounter? (DM, HTN, Smoking, COPD, CAD, Cancer, CVA, ARF, Chemo, Hep., AIDS, mental health diagnosis, sleep apnea, morbid obesity)? @ -CVA, GERD Was patient admitted / discharged? Hospital course, mention meds given and route, prescriptions, significant lab abnormalities, going to OR and other pertinent info. @ -Discharged Undiagnosed new problem with uncertain prognosis? @ -No Drug Therapy requiring intensive monitoring for toxicity (Heparin, Nitro, Insulin, Cardizem)? @ -No Were any procedures done? @ -No Diagnosis/symptom? @ -Superficial thrombophlebitis right leg Acute, or Chronic, or Acute on Chronic? @ -Acute Uncomplicated (without systemic symptoms) or Complicated (systemic symptoms)? @ -Uncomplicated Side effects of treatment? @ -No Exacerbation, Progression, or Severe Exacerbation? @ -No Poses a threat to life or bodily function? How? (Chest pain, [place], VT, pneumonia, PE, COPD, DKA, ARF, appy, cholecystitis, CVA, Diverticulitis, Homicidal, Suicidal, threat to staff... and all critical care pts) @ -No Disposition Clinical Impression: Superficial vein thrombosis Disposition: HOME SELF-CARE Condition: Good Instructions (If sedation given, give patient instructions): Superficial Thrombophlebitis (ED) Additional Instructions: Elevate leg and take Tylenol and or Motrin as needed for pain. Warm moist compresses to the area every 4-6 hours as needed. Follow-up with the primary care doctor on Thursday. Is patient prescribed a controlled substance at d/c from ED?: No Referrals: Will Mendoza MD [Primary Care Provider] - 1-2 days Time of Disposition: 10:59
--- NOTE | 2022-12-05 10:51 | US ---
EXAMINATION TYPE: US venous doppler duplex LE RT DATE OF EXAM: 12/05/2022 10:41 AM COMPARISON: NONE CLINICAL HISTORY: pain. Redness seen mid thigh with burning. On aspirin. SIDE PERFORMED: Right TECHNIQUE: The lower extremity deep venous system is examined utilizing real time linear array sonog matthew with graded compression, doppler sonography and color-flow sonography. VESSELS IMAGED: Common Femoral Vein Deep Femoral Vein Greater Saphenous Vein * Femoral Vein Popliteal Vein Small Saphenous Vein * Proximal Calf Veins (* superficial vessels) Right Leg: Negative for DVT. Positive for SVT in GSV at area of concern at mid thigh. IMPRESSIONNegative for DVT. Positive for superficial venous thrombosis in GSV at area of concern at mid thigh.
== END 2022-12-05 11:17 | disposition home or self-care (01) ==
LOC: EC 09:26
DX: I82.811 Embolism and thrombosis of superficial veins of right lower extremity (principal); F41.9 Anxiety disorder, unspecified; F12.90 Cannabis use, unspecified, uncomplicated; Z88.6 Allergy status to analgesic agent; Z86.73 Personal history of transient ischemic attack (TIA), and cerebral infarction without residual deficits
CPT/HCPCS: 99284

== ENCOUNTER 2023-08-21 16:48 | Observation (INO) | payer MEDICARE ==
--- NOTE | 2023-08-21 17:11 | ED ---
General Adult HPI - General Stated complaint: headache,dizzy, hearing loss Time Seen by Provider: 08/21/23 17:09 Source: patient Mode of arrival: wheelchair Limitations: no limitations - History of Present Illness Initial comments: 53-year-old male presenting with chief complaint of dizziness. Patient also admits to headache, hearing loss, and facial paresthesias. States that he has fallen multiple times and is also complaining of left shoulder pain after falling. Admits to head injury. Unsure if he had any loss of consciousness. No blood thinners. No chest pain, difficulty breathing, vomiting, abdominal pain, weakness, vision changes, dictations. - Related Data Previous Rx's Medication Instructions Recorded HYDROcodone/APAP 10-325MG [[place] 1 tab PO Q6HR PRN 3 Days #12 tab 06/15/20 10-325] Ibuprofen [Motrin] 800 mg PO Q6HR #20 tab 06/15/20 Orphenadrine [Norflex] 100 mg PO Q12H #14 tablet.er 06/15/20 Allergies Allergy/AdvReac Type Severity Reaction Status Date / Time fluticasone [From Flonase] Allergy swelling Verified 12/05/22 09:41 of throat prednisone AdvReac Rectal Verified 12/05/22 09:41 Bleeding Review of Systems ROS Statement: Those systems with pertinent positive or pertinent negative responses have been documented in the HPI. ROS Other: All systems not noted in ROS Statement are negative. Past Medical History Past Medical History: Chest Pain / Angina, CVA/TIA, GERD/Reflux, Neurologic Disorder Additional Past Medical History / Comment(s): superficial blood clot in right arm History of Any Multi-Drug Resistant Organisms: None Reported Past Surgical History: Cholecystectomy, Hernia Repair, Orthopedic Surgery Additional Past Surgical History / Comment(s): had egd, colonoscopy, pain clinic prodedure for bilat shoulders, sinus surgery Past Anesthesia/Blood Transfusion Reactions: No Reported Reaction Past Psychological History: Anxiety Smoking Status: Never smoker Past Alcohol Use History: None Reported Past Drug Use History: Marijuana General Exam - General Exam Comments Initial Comments: Visual Physical Exam Vital signs reviewed General: Well-appearing, nontoxic, no acute distress. Head: Normocephalic, atraumatic Eyes: PERRLA, EOMI ENT: Airway patent Chest: Nonlabored breathing Skin: No visual rash, normal skin tone Neuro: Alert and oriented 3 Musculoskeletal: No gross abnormalities Limitations: physical limitation General appearance: alert, in no apparent distress Head exam: Present: atraumatic, normocephalic Eye exam: Present: normal appearance, PERRL, EOMI ENT exam: Present: TM's normal bilaterally Neck exam: Present: normal inspection Respiratory exam: Present: normal lung sounds bilaterally. Absent: respiratory distress, wheezes, rales, rhonchi, stridor Cardiovascular Exam: Present: regular rate, normal rhythm, normal heart sounds. Absent: systolic murmur, diastolic murmur, rubs, gallop, clicks Neurological exam: Present: alert, oriented X3 Expanded Speech: Present: fluid speech Cranial nerves: EOM's Intact: Normal Eye Response: (4) open spontaneously Motor Response: (6) obeys commands Verbal Response: (5) oriented True Total: 15 Psychiatric exam: Present: normal affect, normal mood Skin exam: Present: warm, dry Course Vital Signs 08/21/23 08/21/23 17:08 23:49 Temperature 98 F Pulse Rate 74 Pulse Rate [ 80 Left Sitting Pulse Oximetery ] Pulse Rate [ 79 Left Standing Pulse Oximetery ] Pulse Rate [ 59 L Left Supine Pulse Oximetery ] Respiratory 16 16 Rate Blood Pressure 124/85 Blood Pressure 115/82 [Right Arm Sitting] Blood Pressure 115/102 [Right Arm Standing] Blood Pressure 114/85 [Right Arm Supine] O2 Sat by Pulse 98 99 Oximetry Medical Decision Making - Medical Decision Making Sinus rhythm ventricular rate 75. LA interval 141. QRS 84. QTC 397. QTc 425. Was pt. sent in by a medical professional or institution (, PA, BLACK STUDIES PROFESSOR, urgent care, hospital, or alf...) When possible be specific @ -No Did you speak to anyone other than the patient for history (EMS, parent, family, police, friend...)? What history was obtained from this source @ -No Did you review nursing and triage notes (agree or disagree)? Why? @ -I reviewed and agree with nursing and triage notes Were old charts reviewed (outside hosp., previous admission, EMS record, old EKG, old radiological studies, urgent care reports/EKG's, alf records)? Report findings @ -No old charts were reviewed Differential Diagnosis (chest pain, altered mental status, abdominal pain women, abdominal pain men, vaginal bleeding, weakness, fever, dyspnea, syncope, headache, dizziness, GI bleed, back pain, seizure, CVA, palpatations, mental health, musculoskeletal)? @ -[facility] Differential Dizziness: Benign paroxysmal positional Vertigo, Menieres disease, otitis media, acoustic neuroma, vertebrobasilar insufficiency, cerebellar stroke, encephalitis, hypovolemic, arrhythmia, coronary artery syndrome, anemia this is not meant to be an all-inclusive list EKG interpreted by me (3pts min.). @ -As above X-rays interpreted by me (1pt min.). @ -Shoulder x-ray shows AC joint OA. No acute osseous abnormality CT interpreted by me (1pt min.). @ -CT shows no acute intracranial process or cervical spine fracture U/S interpreted by me (1pt. min.). @ -None done What testing was considered but not performed or refused? (CT, X-rays, U/S, labs)? Why? @ -None What meds were considered but not given or refused? Why? @ -None Did you discuss the management of the patient with other professionals (professionals i.e. , PA, BLACK STUDIES PROFESSOR, lab, RT, psych nurse, social media strategist, company manager, teacher, court security officer, returned case inspector)? Give summary @ -I spoke with Rocio, with [facility] accepted admission Was smoking cessation discussed for >3mins.? @ -No Was critical care preformed (if so, how long)? @ -No Were there social determinants of health that impacted care today? How? (Homelessness, low income, unemployed, alcoholism, drug addiction, transportatio n, low edu. Level, literacy, decrease access to med. care, retirement, rehab)? @ -No Was there de-escalation of care discussed even if they declined (Discuss DNR or withdrawal of care, Hospice)? DNR status @ -No What co-morbidities impacted this encounter? (DM, HTN, Smoking, COPD, CAD, Cancer, CVA, ARF, Chemo, Hep., AIDS, mental health diagnosis, sleep apnea, morbid obesity)? @ -None Was patient admitted / discharged? Hospital course, mention meds given and route, prescriptions, significant lab abnormalities, going to OR and other pertinent info. @ -53-year-old male presenting with chief complaint of dizziness, nausea, headache. History and physical exam were conducted. Patient is unable to ambulate secondary to dizziness. Lab work is grossly unremarkable. Negative CT of the brain and cervical spine pain. Shoulder x-ray shows no acute osseous abnormality. Patient is given meclizine. On reexamination he remained dizzy. Negative orthostatic vitals. Patient will be admitted for further evaluation. She is agreeable with this plan. I discussed this case with my attending Dr. Malhotra Undiagnosed new problem with uncertain prognosis? @ -No Drug Therapy requiring intensive monitoring for toxicity (Heparin, Nitro, Insulin, Cardizem)? @ -No Were any procedures done? @ -No Diagnosis/symptom? @ -Vertigo Acute, or Chronic, or Acute on Chronic? @ -Acute Uncomplicated (without systemic symptoms) or Complicated (systemic symptoms)? @ -Complicated Side effects of treatment? @ -No Exacerbation, Progression, or Severe Exacerbation? @ -No Poses a threat to life or bodily function? How? (Chest pain, [place], [place], pneumonia, PE, COPD, DKA, ARF, appy, cholecystitis, CVA, Diverticulitis, Homicidal, Suicidal, threat to staff... and all critical care pts) @ -Potentially - Lab Data Result diagrams: 08/21/23 18:12 08/21/23 18:02 Lab Results 08/21/23 08/21/23 08/21/23 Range/Units 18:02 18:12 18:12 WBC 9.2 (3.8-10.6) k/uL RBC 4.98 (4.30-5.90) m/uL Hgb 15.0 (13.0-17.5) gm/dL Hct 43.7 (39.0-53.0) % MCV 87.7 (80.0-100.0) fL MCH 30.1 (25.0-35.0) pg MCHC 34.3 (31.0-37.0) g/dL RDW 13.7 (11.5-15.5) % Plt Count 286 (150-450) k/uL MPV 8.3 Neutrophils % 62 % Lymphocytes % 28 % Monocytes % 5 % Eosinophils % 3 % Basophils % 1 % Neutrophils # 5.7 (1.3-7.7) k/uL Lymphocytes # 2.6 (1.0-4.8) k/uL Monocytes # 0.5 (0-1.0) k/uL Eosinophils # 0.3 (0-0.7) k/uL Basophils # 0.1 (0-0.2) k/uL Sodium 139 (137-145) mmol/L Potassium 4.4 (3.5-5.1) mmol/L Chloride 106 (98-107) mmol/L Carbon Dioxide 19 L (22-30) mmol/L Anion Gap 14 mmol/L BUN 12 (9-20) mg/dL Creatinine 0.93 (0.66-1.25) mg/dL Est GFR (CKD-EPI)AfAm >90 (>60 ml/min/1.73 sqM) Est GFR (CKD-EPI)NonAf >90 (>60 ml/min/1.73 sqM) Glucose 90 (74-99) mg/dL Calcium 9.5 (8.4-10.2) mg/dL Total Bilirubin 1.2 (0.2-1.3) mg/dL AST 34 (17-59) U/L ALT 18 (4-49) U/L Alkaline Phosphatase 69 (38-126) U/L Troponin I <0.012 (0.000-0.034) ng/mL Total Protein 7.8 (6.3-8.2) g/dL Albumin 4.8 (3.5-5.0) g/dL Disposition Clinical Impression: Vertigo Disposition: ADMITTED IP TO THIS [facility] Condition: Fair Referrals: Will Mendoza MD [Primary Care Provider] - 1-2 days
--- NOTE | 2023-08-21 17:39 | XR ---
EXAMINATION TYPE: XR shoulder complete 3 views LT DATE OF EXAM: 08/21/2023 Comparison: None Clinical History: 53-year-old male fall Findings: Mild degenerative joint space narrowing at the joint. Subacromial space is preserved. No acute fractu re, subluxation, dislocation is seen. Minimal inferior humeral head spurring is noted. Impression: Mild AC joint OA. No acute osseous abnormality seen.
--- NOTE | 2023-08-21 18:01 | CT ---
EXAMINATION TYPE: CT brain cspine wo con DATE OF EXAM: 08/21/2023 COMPARISON: Brain 10/17/2011 HISTORY: 53-year-old male pain after fall, Bilateral ear infection with dizziness and falling. CT DLP: 1395.1 mGycm Automated exposure control for dose reduction was used. Technique: Examination of the head was done in axial plane without intravenous contrast. Coronal and sagittal reconstructions performed. CT of the cervical spine was obtained in axial plane without intravenous injection of contrast mater ial. Coronal and sagittal reformatted images were obtained from the axial views for evaluation of f ractures, spinal alignment and canal. FINDINGS: Head: There is no evidence of acute intracranial hemorrhage, acute ischemic changes, mass, mass-effect, or extra-axial fluid collection. There is no effacement of cerebral sulci or basal subarachnoid cister ns. There is no hydrocephalus. There is no midline shift. Ureña-white matter distinction is preserv ed. Punctate benign basal ganglia calcifications on the right are unchanged. Tiny lacunar infarct or prom inent perivascular space left basal ganglia unchanged. Mild mucosal thickening ethmoid air cells. Rightward nasal septal deviation. Mastoid air cells are we ll pneumatized. Cervical spine: No craniocervical junction abnormality, predental space widening, or prevertebral soft tissue swellin g. There is mild to moderate degenerative disc disease with prominent uncovertebral joint arthropathy pa rticularly towards the left at C3-C4. Disc osteophyte complex here mildly narrows the spinal canal. Additional scattered mild degenerative disc disease throughout. No acute fracture of the cervical spine. Alignment is maintained. At C3-C4, there is mild bilateral neural foraminal stenosis. Mild emphysematous change of the visualized upper lungs. Sagittal and coronal reformatted images confirm above findings. COMBINED IMPRESSION: 1. No acute intracranial abnormality seen. 2. No acute fracture or malalignment of the cervical spine. Mild spondylotic change.
[2023-08-21 18:33] LABS: Basophils # (A) 0.1 k/uL (0-0.2); Basophils % (A) 1 %; Eosinophils # (A) 0.3 k/uL (0-0.7); Eosinophils % (A) 3 %; HCT 43.7 % (39.0-53.0); Lymphocytes # (A) 2.6 k/uL (1.0-4.8); Lymphocytes % (A) 28 %; MCH 30.1 pg (25.0-35.0); MCHC 34.3 g/dL (31.0-37.0); MCV 87.7 fL (80.0-100.0); Mean Platelet Volume 8.3; Monocytes # (A) 0.5 k/uL (0-1.0); Monocytes % (A) 5 %; Neutrophils # (A) 5.7 k/uL (1.3-7.7); Neutrophils % (A) 62 %; Platelet Count 286 k/uL (150-450); RBC 4.98 m/uL (4.30-5.90); RDW 13.7 % (11.5-15.5); WBC 9.2 k/uL (3.8-10.6)
[2023-08-21 18:45] LABS: ALT 18 U/L (4-49); AST 34 U/L (17-59); African American GFR (CKD) >90 (>60 ml/min/1.73 sqM); Albumin 4.8 g/dL (3.5-5.0); Alkaline Phosphatase 69 U/L (38-126); Anion Gap 14 mmol/L; Blood Urea Nitrogen 12 mg/dL (9-20); Calcium 9.5 mg/dL (8.4-10.2); Carbon Dioxide 19 mmol/L (22-30); Chloride 106 mmol/L (98-107); Glucose 90 mg/dL (74-99); Non-African American GFR(CKD) >90 (>60 ml/min/1.73 sqM); Potassium 4.4 mmol/L (3.5-5.1); Sodium 139 mmol/L (137-145); Total Bilirubin 1.2 mg/dL (0.2-1.3); Total Protein 7.8 g/dL (6.3-8.2)
[2023-08-21] MEDS ORDERED: MECLIZINE 12.5 MG TAB PO STA (22:13)
[2023-08-21] MEDS ORDERED: ACETAMINOPHEN TAB 325 MG TAB PO PRN (23:57)
[2023-08-21] MEDS ORDERED: NALOXONE 0.4 MG/ML 1 ML VIAL IV PRN (23:57)
[2023-08-21] MEDS ORDERED: ONDANSETRON 4 MG/2 ML VIAL IVP PRN (23:57)
[2023-08-21] MEDS ORDERED: IBUPROFEN 400 MG TAB PO PRN (23:57)
[2023-08-22] MEDS: SODIUM CHLORIDE 0.9% 1,000 ML IV SCH ×2 (01:33→13:24)
--- NOTE | 2023-08-22 14:36 | P.HPIM ---
History of Present Illness H&P Date: 08/22/23 History of present illness; patient is a 53-year-old gentleman with no signific ant past medical history per the ER for dizziness and fall. Patient stated that he has been feeling dizzy for the last few days. Patient also complaining of numbness of his facial region. Patient also complaining of reduced hearing. Patient complaining of headache as well. Denies any slurred speech. Denies any weakness of any extremity. Denies any facial droop. Patient does admit to falling multiple times. Patient is not sure whether he has lost his consciousness during those episodes. Patient did hurt his left shoulder while falling. Because of this persistent dizziness, patient came to ER. Initial lab work done in the ER showed WBC 9.2, hemoglobin 15, platelet count 286, sodium 1, compressible pressures, BUN 12, creatinine 0.93, AST 34, AST 18, troponin 0.012 EKG done in the ER showed heart rate of 75, no ST segment elevation or depression seen, no T-wave inversions seen. X-ray left shoulder done showed no acute fractures CT head done showed no acute intracranial process CT cervical spine done showed no acute cervical spine fracture or subluxation seen. Patient admitted to internal medicine service REVIEW OF SYSTEMS: CONSTITUTIONAL: No fever, no malaise, no fatigue. HEENT: No recent visual problems or hearing problems. Denied any sore throat. CARDIOVASCULAR: No chest pain, orthopnea, PND, no palpitations, no syncope. PULMONARY: No shortness of breath, no cough, no hemoptysis. GASTROINTESTINAL: No diarrhea, no nausea, no vomiting, no abdominal pain. NEUROLOGICAL: As mentioned in HPI HEMATOLOGICAL: Denies any bleeding or petechiae. GENITOURINARY: Denies any burning micturition, frequency, or urgency. MUSCULOSKELETAL/RHEUMATOLOGICAL: Denies any joint pain, swelling, or any muscle pain. ENDOCRINE: Denies any polyuria or polydipsia. The rest of the 14-point review of systems is negative. PHYSICAL EXAMINATION: GENERAL: The patient is alert and oriented x3, not in any acute distress. Well developed, well nourished. HEENT: Pupils are round and equally reacting to light. EOMI. No scleral icterus. No conjunctival pallor. Normocephalic, atraumatic. No pharyngeal erythema. No thyromegaly. CARDIOVASCULAR: S1 and S2 present. No murmurs, rubs, or gallops. PULMONARY: Chest is clear to auscultation, no wheezing or crackles. ABDOMEN: Soft, nontender, nondistended, normoactive bowel sounds. No palpable organomegaly. MUSCULOSKELETAL: No joint swelling or deformity. EXTREMITIES: No cyanosis, clubbing, or pedal edema. NEUROLOGICAL: Gross neurological examination did not reveal any focal deficits. SKIN: No rashes. Assessment and plan Dizziness Facial paresthesias Headache Monitor vital signs Monitor CBC Monitor CMP Continue telemetry monitoring Check orthostatics Continue neuro checks Fall precautions Continue Antivert Consult neurology Labs and medication were reviewed.. Continue same treatment. Continue with symptomatic treatment. Resume home medication. Monitor labs and vitals. DVT and GI prophylaxis. Further recommendations as per clinical course of the patient Dictation was produced using [employer] dictation software. please excuse any grammatical, word or spelling errors. Past Medical History Past Medical History: Chest Pain / Angina, CVA/TIA, GERD/Reflux, Neurologic Disorder Additional Past Medical History / Comment(s): superficial blood clot in right arm History of Any Multi-Drug Resistant Organisms: None Reported Past Surgical History: Cholecystectomy, Hernia Repair, Orthopedic Surgery Additional Past Surgical History / Comment(s): had egd, colonoscopy, pain clinic prodedure for bilat shoulders, sinus surgery Past Anesthesia/Blood Transfusion Reactions: No Reported Reaction Past Psychological History: Anxiety Smoking Status: Former smoker Past Alcohol Use History: None Reported Past Drug Use History: Marijuana Medications and Allergies Home Medications Medication Instructions Recorded Confirmed Type No Known Home Medications 08/22/23 08/22/23 History Allergies Allergy/AdvReac Type Severity Reaction Status Date / Time fluticasone [From Flonase] Allergy Anaphylaxis Verified 08/22/23 12:17 amoxicillin [From Amoxil] AdvReac Nausea & Verified 08/22/23 12:17 Vomiting prednisone AdvReac Rectal Verified 08/22/23 12:17 Bleeding "oral pain meds" AdvReac Nausea & Uncoded 08/22/23 12:17 Vomiting Physical Exam Vitals: Vital Signs Temp Pulse Pulse Pulse Pulse Pulse Resp 08/22/23 07:10 97.6 F 51 L 16 08/22/23 04:10 97.5 F L 58 L 16 08/22/23 02:41 65 18 08/21/23 23:49 80 79 59 L 16 08/21/23 17:08 98 F 74 16 BP BP BP BP BP Pulse Ox 08/22/23 07:10 111/73 98 08/22/23 04:10 117/72 97 08/22/23 02:41 114/80 99 08/21/23 23:49 115/82 115/102 114/85 99 08/21/23 17:08 124/85 98 Intake and Output 08/21/23 08/22/23 08/22/23 22:59 06:59 14:59 Other: # Voids 0 Weight 77.111 kg 77.111 kg Results CBC & Chem 7: 08/21/23 18:12 08/21/23 18:02 Labs: Abnormal Lab Results - Last 24 Hours (Table) 08/21/23 Range/Units 18:02 Carbon Dioxide 19 L (22-30) mmol/L Thrombosis Risk Factor Assmnt - Choose All That Apply Each Factor Represents 1 point: Age 41-60 years Thrombosis Risk Factor Assessment Total Risk Factor Score: 1 Thrombosis Risk Factor Assessment Level: Low Risk
[2023-08-22 21:51] VITALS: RESP 16
[2023-08-23] MEDS: SODIUM CHLORIDE 0.9% 1,000 ML IV SCH (04:19)
[2023-08-23 07:56] VITALS: BP 114/72; PULSE 63; TEMP 98.4
--- NOTE | 2023-08-23 10:36 | P.CNNES ---
History of Present Illness Consult date: 08/22/23 Requesting physician: Farrah Valdovinos Reason for Consult: Vertigo, headache, facial paresthesias History of Present Illness: Patient is a 53-year-old male came to the hospital yesterday at 4:48 PM for acute on chronic vertigo and hearing issues. Patient started having recurrent ear infections about 25 years ago (since in his 30s years of age). 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 He got an ear infection in August 2022, was given a course of antibiotics, which helped a little, but then symptoms came back. He has been suffering from dizziness throughout this year. He does notice otalgia, feels fluid in his eyes. He has chronic tinnitus, feels like he has hands over his ears bilaterally. The right hearing is worse. Patient states that in the last couple months, he has developed headaches which were not consistent, but in the last couple weeks it is becoming worse and is constant on a 24/7 basis. The headache is holocephalic, but is worse involving the left occipital region. He claims his headache at this time 6-7/10. However when he sits up, it becomes 10/10, wants to throw up. When he sits up, it gets into a sharp pain, like a knife stabbing in the left occipital region. He has also noticed headache when he bends over, or with sexual activity, or when he is doing exertion. When he stands up, 83 Hz like it will pop. He has developed light sensitivity, but denies any noise sensitivity because of his decreased hearing. He has noticed numbness of left side of the face, and the head and neck and shoulders hurt. He throws up, feels dizzy and gets blurred vision. He used to see Dr. Momin, but was not able to see him because of non-paying his bills. Vital signs on arrival blood pressure 124/85, pulse rate 74 temperature 98.0. Patient had orthostatics checked, which was negative. Supine blood pressure 114/85 with pulse of 59. Sitting up was 115/82 and pulse of 80. On standing was 115/102 and pulse 79. Blood test shows normal CBC, CMP and troponin. 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 No acute osseous abnormality. CT head showed no acute intracranial abnormality seen. I personally review CT head, agree with the findings. Visualized paranasal sinuses are clear, with mild opacification of some ethmoid air cells. The external auditory canals are clear. CT of the cervical spine showed no acute fracture or malalignment of the cervical spine. Mild spondylitic change. Patient has multiple MRI of the brain performed in the past, most recently on 04/22/2019 which was performed for "headaches" which revealed nonspecific white matter changes, and chronic paranasal sinus disease. Patient had a head MRA performed 04/22/2019, which was suboptimal study but without intracranial aneurysm seen. Patient had another MRI of the brain performed for "headaches" on 05/07/2016, which revealed multiple nonspecific T2 lesions are noted with differential diagnostic possibilities include demyelinating disease, vasculitis, sequela of chronic migraine headaches as well as Lyme disease. Had another MRI of the brain on 07/10/2015 for "headaches and numbness" which also showed similar abnormalities. Patient denies hypertension or diabetes. He uses medical marijuana. Denies any drug use. Does not smoke tobacco. Drinks alcohol very little. Review of Systems Constitutional: Reports chills, Reports sweats, Denies fever (Never checked) Eyes: bilateral blurred vision (Feels puffy in face, gets worse and better, not goes away), bilateral photophobia, denies diplopia, denies loss of peripheral vision Ears: bilateral: decreased hearing, tinnitus, deny: earache (fullness in mastoid region) Ears, nose, mouth and throat: Reports headache, Reports vertigo (On standing), Denies sore throat Cardiovascular: Reports lightheadedness, Denies chest pain, Denies shortness of breath Respiratory: Denies cough, Denies excessive sputum Gastrointestinal: Reports nausea, Denies abdominal pain, Denies diarrhea, Denies vomiting (gags though) Genitourinary: Denies incontinence, Denies urinary frequency Musculoskeletal: Reports low back pain, Reports neck pain, Denies myalgias Integumentary: Denies pruritus, Denies rash Neurological: Reports as per HPI Psychiatric: Reports anxiety, Reports depression Past Medical History Past Medical History: Chest Pain / Angina, CVA/TIA, GERD/Reflux, Neurologic Disorder Additional Past Medical History / Comment(s): superficial blood clot in right arm History of Any Multi-Drug Resistant Organisms: None Reported Past Surgical History: Cholecystectomy, Hernia Repair, Orthopedic Surgery Additional Past Surgical History / Comment(s): had egd, colonoscopy, pain clinic prodedure for bilat shoulders, sinus surgery Past Anesthesia/Blood Transfusion Reactions: No Reported Reaction Past Psychological History: Anxiety Smoking Status: Former smoker Past Alcohol Use History: None Reported Past Drug Use History: Marijuana Medications and Allergies Home Medications Medication Instructions Recorded Confirmed Type No Known Home Medications 08/22/23 08/22/23 History Allergies Allergy/AdvReac Type Severity Reaction Status Date / Time fluticasone [From Flonase] Allergy Anaphylaxis Verified 08/22/23 12:17 amoxicillin [From Amoxil] AdvReac Nausea & Verified 08/22/23 12:17 Vomiting prednisone AdvReac Rectal Verified 08/22/23 12:17 Bleeding "oral pain meds" AdvReac Nausea & Uncoded 08/22/23 12:17 Vomiting Physical Examination - Vital Signs Vital Signs: Vital Signs Temp Pulse Pulse Pulse Pulse Pulse Resp 08/22/23 07:10 97.6 F 51 L 16 08/22/23 04:10 97.5 F L 58 L 16 08/22/23 02:41 65 18 08/21/23 23:49 80 79 59 L 16 08/21/23 17:08 98 F 74 16 BP BP BP BP BP Pulse Ox 08/22/23 07:10 111/73 98 08/22/23 04:10 117/72 97 08/22/23 02:41 114/80 99 08/21/23 23:49 115/82 115/102 114/85 99 08/21/23 17:08 124/85 98 Intake and Output 08/21/23 08/22/23 08/22/23 22:59 06:59 14:59 Other: # Voids 0 2 Weight 77.111 kg 77.111 kg Patient is a middle aged male, in no acute distress. Patient is alert awake oriented to time place and person. Speech and language functions are normal. Patient can name and repeat very well. No aphasia or dysarthria. Attention, concentration and fund of knowledge is adequate. On cranial nerve examination, pupils are equal, round and reacting to light, visual kimbrough are full on confrontation, with no neglect on double simultaneous stimulation. Extraocular muscles are intact with no nystagmus. Face is symmetric, tongue protrudes to the midline. Palatal elevation and sensation normal, hearing is very significantly decreased bilaterally, and shoulder shrug normal, facial sensation normal. On muscle strength testing, there is no pronator drift and the strength is normal in arms and legs distally and proximally. Deep tendon reflexes are symmetric 1 all over and plantars downgoing. Sensory to touch is equal with no neglect on double simultaneous stimulation. Cerebellar function showed no ataxia for [id number] testing. No dysdiadochokinesia. No ataxia for [id number] testing on either side. Tone and bulk of muscles normal. Gait deferred.. On general examination, there is no carotid bruit or murmur, S1-S2 audible. Chest is clear on consultation. Abdomen is soft nontender. No organomegaly, bowel sounds present. Peripheral pulses are present. No peripheral edema. Results - Laboratory Findings CBC and BMP: 08/21/23 18:12 08/21/23 18:02 Abnormal Lab Findings: Abnormal Labs 08/21/23 18:02 Carbon Dioxide 19 L Assessment and Plan Assessment: * Acute on chronic recurrent vertigo, dizziness, likely due to peripheral vestibular dysfunction. Rule out Mnire's disease. * New onset of worsening headaches, blurred vision, which is worse on sitting and standing up, exact cause remains uncertain. Rule out intracranial hypotension, rule out left occipital neuralgia. On review of records, it appears patient had numerous MRI of the brain performed in the past (x3) for headache, which only showed some small vessel disease and paranasal sinus disease. Suspect his headaches are probably chronic in nature, with current acute exacerbation of headache. * Chronic bilateral hearing loss, moderate to severe * History of recurrent ear infections * Hypothyroidism * Marijuana use Plan: * Repeat MRI of the brain with and without contrast to evaluate for any structural abnormality, evaluate for paranasal sinus disease, rule out any abnormal enhancement. * B12, folate, TSH * Recommended ENT consultation for chronic recurrent vertigo, chronic otalgia, rule out Mnire's disease. * Neurology will follow. Thank you for the consult. Time with Patient: Greater than 30
--- NOTE | 2023-08-23 12:26 | P.PN ---
Subjective Progress Note Date: 08/23/23 patient is a 53-year-old gentleman with no significant past medical history per the ER for dizziness and fall. Patient stated that he has been feeling dizzy for the last few days. Patient also complaining of numbness of his facial region. Patient also complaining of reduced hearing. Patient complaining of headache as well. Denies any slurred speech. Denies any weakness of any extremity. Denies any facial droop. Patient does admit to falling multiple times. Patient is not sure whether he has lost his consciousness during those episodes. Patient did hurt his left shoulder while falling. Because of this persistent dizziness, patient came to ER. Initial lab work done in the ER showed WBC 9.2, hemoglobin 15, platelet count 286, sodium 1, compressible pressures, BUN 12, creatinine 0.93, AST 34, AST 18, troponin 0.012 EKG done in the ER showed heart rate of 75, no ST segment elevation or depression seen, no T-wave inversions seen. X-ray left shoulder done showed no acute fractures CT head done showed no acute intracranial process CT cervical spine done showed no acute cervical spine fracture or subluxation seen. Patient admitted to internal medicine service 08/23. Patient seen and examined. Still having dizziness. Neurology evaluated the patient, recommended doing MRI REVIEW OF SYSTEMS: CONSTITUTIONAL: No fever, no malaise,. CARDIOVASCULAR: No chest pain, no palpitations, no syncope. PULMONARY: No shortness of breath, no cough, GASTROINTESTINAL: No diarrhea, no nausea, no vomiting, no abdominal pain. NEUROLOGICAL: No headaches, no weakness, PHYSICAL EXAMINATION: GENERAL: The patient is alert and oriented x3, not in any acute distress. Well developed, well nourished. HEENT: Pupils are round and equally reacting to light. EOMI. No scleral icterus. No conjunctival pallor. Normocephalic, atraumatic. No pharyngeal erythema. No thyromegaly. CARDIOVASCULAR: S1 and S2 present. No murmurs, rubs, or gallops. PULMONARY: Chest is clear to auscultation, no wheezing or crackles. ABDOMEN: Soft, nontender, nondistended, normoactive bowel sounds. No palpable organomegaly. MUSCULOSKELETAL: No joint swelling or deformity. EXTREMITIES: No cyanosis, clubbing, or pedal edema. NEUROLOGICAL: Gross neurological examination did not reveal any focal deficits. SKIN: No rashes. Assessment and plan Dizziness Facial paresthesias Headache Monitor vital signs Monitor CBC Monitor CMP Continue telemetry monitoring Check orthostatics Continue neuro checks MRI brain ordered Fall precautions Continue Antivert Neurology following Labs and medication were reviewed.. Continue same treatment. Continue with symptomatic treatment. Resume home medication. Monitor labs and vitals. DVT and GI prophylaxis. Further recommendations as per clinical course of the patient Dictation was produced using [employer] dictation software. please excuse any gra mmatical, word or spelling errors. Objective - Vital Signs Vital signs: Vital Signs Temp 98.4 F 08/23/23 07:00 Pulse 63 08/23/23 07:00 Resp 16 08/23/23 07:00 BP 114/72 08/23/23 07:00 Pulse Ox 99 08/23/23 07:00 FiO2 Intake & Output 08/22/23 08/23/23 08/23/23 18:59 06:59 18:59 Other: Voiding Method Toilet # Voids 2 1 - Labs CBC & Chem 7: 08/21/23 18:12 08/21/23 18:02 Labs: Abnormal Lab Results - Last 24 Hours (Table) 08/22/23 Range/Units 15:23 TSH 57.900 H (0.350-5.500) UIU/ML Free (T4) Reflex I 0.41 L (0.80-1.80) ng/dL
--- NOTE | 2023-08-27 09:30 | P.DS ---
Providers Date of admission: 08/21/23 23:59 Expected date of discharge: 08/27/23 Attending physician: Anthony Hayes Consults: 08/21/23 23:57 Consult Physician Urgent Consulting Provider: Estevan Hdez Consult Reason/Comments: vertigo, HOGUE, facial paresthesias Do you want consulting provider notified?: Yes, Notify in am Primary care physician: Will Mendoza Hospital Course: Discharge diagnoses; Dizziness Facial paresthesias Headache Hospital course; patient is a 53-year-old gentleman with no significant past medical history per the ER for dizziness and fall. Patient stated that he has been feeling dizzy for the last few days. Patient also complaining of numbness of his facial region. Patient also complaining of reduced hearing. Patient complaining of headache as well. Denies any slurred speech. Denies any weakness of any extremity. Denies any facial droop. Patient does admit to falling multiple times. Patient is not sure whether he has lost his consciousness during those episodes. Patient did hurt his left shoulder while falling. Because of this persistent dizziness, patient came to ER. Initial lab work done in the ER showed WBC 9.2, hemoglobin 15, platelet count 286, sodium 1, compressible pressures, BUN 12, creatinine 0.93, AST 34, AST 18, troponin 0.012 EKG done in the ER showed heart rate of 75, no ST segment elevation or depression seen, no T-wave inversions seen. X-ray left shoulder done showed no acute fractures CT head done showed no acute intracranial process CT cervical spine done showed no acute cervical spine fracture or subluxation seen. Patient admitted to internal medicine service 08/23. Patient seen and examined. Still having dizziness. Neurology evaluated the patient, recommended doing MRI Patient later in the day decided to leave AGAINST MEDICAL ADVICE. Patient was counseled in detail the need for him to stay in the hospital and get MRI brain done but he refused and signed AMA papers Dictation was produced using [employer] dictation software. please excuse any grammatical, word or spelling errors. Patient Condition at Discharge: Fair Plan - Discharge Summary New Discharge Prescriptions: No Action No Known Home Medications Discharge Medication List No Known Home Medications 08/22/23 [History] Follow up Appointment(s)/Referral(s): Will Mendoza MD [Primary Care Provider] - 1-2 days Discharge Disposition: LEFT AGAINST MEDICAL ADVICE
== END 2023-08-23 12:00 | disposition left against medical advice (07) ==
LOC: EC 16:48 → 6NMEDSUR 23:59
PROVIDERS: ADMIT Hospitalist; ATTEND Hospitalist
DX: R42 Dizziness and giddiness (principal); R51.9 Headache, unspecified; R20.0 Anesthesia of skin; Z53.29 Procedure and treatment not carried out because of patient's decision for other reasons; H91.93 Unspecified hearing loss, bilateral; H53.8 Other visual disturbances; H93.19 Tinnitus, unspecified ear; M25.512 Pain in left shoulder; S09.90XA Unspecified injury of head, initial encounter; K21.9 Gastro-esophageal reflux disease without esophagitis; F41.9 Anxiety disorder, unspecified; E86.1 Hypovolemia; E03.9 Hypothyroidism, unspecified; F17.200 Nicotine dependence, unspecified, uncomplicated; W19.XXXA Unspecified fall, initial encounter; R29.6 Repeated falls; Z88.8 Allergy status to other drugs, medicaments and biological substances; Z86.73 Personal history of transient ischemic attack (TIA), and cerebral infarction without residual deficits; Z90.49 Acquired absence of other specified parts of digestive tract; Z88.1 Allergy status to other antibiotic agents; Z86.19 Personal history of other infectious and parasitic diseases
CPT/HCPCS: 96360; 96361; 99285; 36415; 93005; 83921; 84439; 80053; 84443; 82607; 82746; 83605; 84484; 85025; 73030; 72125; 70450; G0378 ×2

== ENCOUNTER → 2023-12-25 | Outpatient (CLI) | payer MEDICARE ==
--- NOTE | 2024-01-01 22:41 | CT ---
EXAMINATION TYPE: CT iac wo con CT DLP: 290 mGycm, Automated exposure control for dose reduction was used. DATE OF EXAM: 12/25/2023 3:47 PM INDICATION: Patient age:Male; 53 years old; Reason for study: H92.13 OTORRHEA, BILATERAL; PHH. COMPARISON: CT brain 08/21/2023. TECHNIQUE: Multiple thin axial images were obtained through the temporal bones and internal auditory canals. Additional coronal reformatted images were obtained. No IV contrast was utilized. STENVER a nd POSCHL views were created on a separate work station. CT Contrast: Contrast used: mL of , none. FINDINGS: Right Temporal Bone: External Ear: Mild thickening of external auditory canal with fluid or thickening of the tympanic mem branes. . Differential diagnostic considerations include otitis externa, fluid, granulation tissue o r perhaps tympanosclerosis. The The external auditory canal seems less narrowed than on the prior CT brain exam. Middle Ear: The ossicles demonstrate a normal appearance. Prussak's space is clear and the scutum i s intact. There is no evidence of osseous erosion and the tegmen tympani is intact. Inner Ear: Cochlea, vestibule and semi circular canals are unremarkable. No evidence of carotid sravan l dehiscence. Two and a half turns of the cochlea are identified. The vestibular aqueduct is not enl arged. Mastoid Air Cells: The mastoid air cells are clear. The tegmen mastoideum is intact. The aditus ad an trum is clear. Internal Auditory Canal: The internal auditory canal is unremarkable. Left Temporal Bone: External Ear: Mild thickening of external auditory canal with fluid or thickening of the tympanic mem branes. . Differential diagnostic considerations include otitis externa, fluid, granulation tissue o r perhaps tympanosclerosis. The external auditory canal appears more patent than on the prior. Middle Ear: The ossicles demonstrate a normal appearance. Prussak's space is clear and the scutum i s intact. There is no evidence of osseous erosion and the tegmen tympani is intact. Inner Ear: Cochlea, vestibule and semi circular canals are unremarkable. No evidence of carotid sravan l dehiscence. Two and a half turns of the cochlea are identified. The vestibular aqueduct is not enl arged. Mastoid Air Cells: The mastoid air cells are clear. The tegmen mastoideum is intact. The aditus ad an trum is clear. Internal Auditory Canal: The internal auditory canal is unremarkable. Right convex nasal septum deviation. Bilateral maxillary sinuplasty. Scattered few mucus retention c ysts and mild mucosal thickening in the mastoid air cells IMPRESSION: Mucus on tympanic membrane related to otitis externa Right convex nasal septum deviation. Mild thickening of external auditory canal with fluid or thickening of the tympanic membranes. . Dif ferential diagnostic considerations include otitis externa, fluid, granulation tissue or perhaps tymp anosclerosis. Mild narrowing of the external auditory canals suggests otitis externa There is mild scattered paranasal sinus disease, but slightly worse than on the prior exam from 08/21
== END | disposition home or self-care (01) ==
LOC: RADCTMAIN 15:02
PROVIDERS: ATTEND Otolaryngology
DX: J34.2 Deviated nasal septum (principal); H61.393 Other acquired stenosis of external ear canal, bilateral
CPT/HCPCS: 70480